=== PATIENT | male | born 1945 | race Caucasian/White ===

== ENCOUNTER 2016-08-08 19:14 | Emergency (ER) | payer MEDICARE, OTHER ==
[2016-08-08] MEDS ORDERED: cloNIDine 0.1 MG Tab PO ONE ×2 (20:33→22:00)
[2016-08-08 20:45] LABS: CHLORIDE,CL 101 mmol/L (98-115); SODIUM,NA 138 mmol/L (136-145)
[2016-08-08] MEDS ORDERED: Acetaminophen/HYDROcodone 325-10 MG Tab PO ONE (20:53)
[2016-08-08] MEDS ORDERED: Acetaminophen/HYDROcodone 325-10 MG Tab ONE (20:54)
[2016-08-08] MEDS ORDERED: cloNIDine 0.1 MG Tab ONE (22:01)
--- NOTE | 2016-08-08 22:11 | EDM.PDOC ---
ED HPI GENERAL MEDICAL PROBLEM - General Chief Complaint: General Stated Complaint: HYPERTENSION Time Seen by Provider: 08/08/16 19:53 Source of Information: Reports: Patient History Limitations: Reports: No limitations - History of Present Illness INITIAL COMMENTS - FREE TEXT/NARRATIVE: Patient presents with high blood pressure. At home his pressure was 170/117. It was high last night and this morning also but responded to his Lisinopril 40 mg qam dose for a few hours then afia again. He also takes Diltiazem 240 mg qhs. He has a headache which usually occurs when his pressures get too high. No fainting or vision changes. Pt denies chest pain or pressure, arm pain, neck /jaw pain, shoulder pain, diaphoresis, nausea. He has A Fib. - Related Data Allergies Allergy/AdvReac Type Severity Reaction Status Date / Time No Known Allergies Allergy Verified 08/08/16 19:33 Home Meds: Home Meds Budesonide/Formoterol [Symbicort 160-4.5 MCG] 2 puff IH BID 11/01/13 [History] Citalopram Hydrobromide [Celexa] 40 mg PO BEDTIME 11/01/13 [History] Dabigatran [Pradaxa] 150 mg PO BID 11/01/13 [History] Digoxin 0.25 mg PO DAILY 11/01/13 [History] Diltiazem [Cardizem CD] 240 mg PO BEDTIME 11/01/13 [History] Lisinopril [Zestril] 40 mg PO DAILY 11/01/13 [History] Rosuvastatin [Crestor] 40 mg PO BEDTIME 11/01/13 [History] clonazePAM [Klonopin] 1.5 mg PO BEDTIME 11/01/13 [History] Aspirin [Adult Low Dose Aspirin EC] 81 mg PO DAILY 10/13/15 [History] Pantoprazole Sodium 40 mg PO DAILY 10/13/15 [History] Fluticasone/Vilanterol [Breo Ellipta 200-25 Mcg INH] 1 inh INH DAILY 07/06/16 [ History] Past Medical History HEENT History: Reports: Impaired vision Cardiovascular History: Reports: Afib, High cholesterol, Hypertension Respiratory History: Reports: Asthma, COPD, Sleep apnea Gastrointestinal History: Reports: Colon polyp, GERD, Hemorrhoids Genitourinary History: Reports: Prostate disorder, Renal calculus Musculoskeletal History: Reports: Arthritis, Back pain, chronic Neurological History: Reports: Migraines Psychiatric History: Reports: Depression Oncologic (Cancer) History: Reports: Prostate - Infectious Disease History Infectious Disease History: Reports: Chicken pox, Measles, Mumps - Past Surgical History HEENT Surgical History: Reports: None Cardiovascular Surgical History: Reports: None Respiratory Surgical History: Reports: None GI Surgical History: Reports: Colonoscopy, EGD, Polypectomy Male Surgical History: Reports: Prostate Biopsy, Other (see below) Other Male Surgeries/Procedures: external radiation to prostate, hx of prostate ca in 2014 Musculoskeletal Surgical History: Reports: Shoulder surgery Social & Family History - Family History Family Medical History: Noncontributory - Tobacco Use Smoking Status *Q: Former Smoker Years of Tobacco use: 1 Packs/Tins Daily: 1 Used Tobacco, but Quit: Yes Month Tobacco Last Used: September Second Hand Smoke Exposure: Yes - Alcohol Use Days Per Week of Alcohol Use: 0 - Recreational Drug Use Recreational Drug Use: No ED ROS GENERAL - Review of Systems Review Of Systems: See Below Constitutional: Denies: fever, chills, diaphoresis HEENT: Denies: Throat pain, Vision change Respiratory: Denies: Shortness of Breath (except for his chronic COPD), Wheezing , Cough Cardiovascular: Denies: Chest pain, Syncope GI/Abdominal: Denies: Abdominal pain, Nausea, Vomiting Musculoskeletal: Denies: neck pain, shoulder pain, arm pain Skin: Denies: cyanosis, jaundice, mottled, pallor, diaphoresis Neurological: Reports: Headache. Denies: Confusion, Dizziness Psychiatric: Denies: Agitation, Anxiety, Confusion ED EXAM, GENERAL - Physical Exam Exam: See Below Exam Limited By: No limitations General Appearance: alert, WD/WN, no apparent distress Eye Exam: bilateral eye: EOMI, normal inspection, PERRL Ears: normal external exam, hearing grossly normal Throat/Mouth: Normal lips, Normal voice, No airway compromise Head: atraumatic, normocephalic Neck: full range of motion Respiratory/Chest: no respiratory distress, lungs clear, normal breath sounds Cardiovascular: normal peripheral pulses, no gallop, no murmur, irregularly irregular, other (2+ edema bilat ankles) GI/Abdominal: normal bowel sounds, soft, non tender Back Exam: No: CVA tenderness (L), CVA tenderness (R) Neurological: alert, oriented, normal cognition, no motor/sensory deficits Psychiatric: normal affect, normal mood Skin Exam: Warm, Dry, Intact, Normal color, No rash Course - Vital Signs Last Recorded V/S: Last Vital Signs Temp 96.8 F 08/08/16 19:20 Pulse 62 08/08/16 21:48 Resp 22 H 08/08/16 20:17 BP 160/81 H 08/08/16 22:04 Pulse Ox 97 08/08/16 21:48 - Orders/Labs/Meds Orders: Active Orders 24 hr Category Date Time Status EKG Documentation Completion [RC] ASDIRECTED Care 08/08/16 20:05 Ordered EKG 12 Lead [EK] Routine Ther 08/08/16 20:00 Ordered Labs: Laboratory Tests 08/08/16 08/08/16 Range/Units 20:05 20:05 WBC 5.4 (5.0-10.0) 10^3/uL RBC 4.92 (4.50-6.00) 10^6/uL Hgb 15.2 (13.0-17.0) g/dL Hct 44.7 (40.0-52.0) % MCV 90.8 (82.0-92.0) fL MCH 30.8 (27.0-31.0) pg MCHC 33.9 (32.0-36.0) g/dL RDW 12.8 (11.5-14.5) % Plt Count 220 (150-300) 10^3/uL MPV 6.8 L (7.4-10.4) fL Neut % (Auto) 68.0 (50.0-70.0) % Lymph % (Auto) 17.8 L (20.0-40.0) % [place] % (Auto) 10.1 H (2.0-8.0) % Eos % (Auto) 3.6 H (1.0-3.0) % Baso % (Auto) 0.5 (0.0-1.0) % Neut # (Auto) 3.7 (2.5-7.0) 10^3/uL Lymph # (Auto) 1.0 (1.0-4.0) 10^3/uL [place] # (Auto) 0.5 (0.1-0.8) 10^3/uL Eos # (Auto) 0.2 (0.1-0.3) 10^3/uL Baso # (Auto) 0.0 (0.0-0.1) 10^3/uL Sodium 138 (136-145) mmol/L Potassium 4.3 (3.3-5.3) mmol/L Chloride 101 (98-115) mmol/L Carbon Dioxide 32.1 H (21.0-32.0) mmol/L BUN 14 (6-25) mg/dL Creatinine 0.93 (0.51-1.17) mg/dL Est Cr Clr Drug Dosing TNP Estimated GFR (MDRD) > 60 mL/min Glucose 94 (70-110) mg/dL Calcium 8.9 (8.7-10.3) mg/dL Troponin I < 0.04 (0.00-0.070) ng/mL Meds: Medications Discontinued Medications Generic Name Dose Route Start Last Admin Trade Name Freq PRN Reason Stop Dose Admin Hydrocodone Bitart/Acetaminophen 1 tab 08/08/16 20:53 08/08/16 20:56 [place] 325-10 Mg PO 08/08/16 20:54 1 tab ONETIME ONE Administration Hydrocodone Bitart/Acetaminophen Confirm 08/08/16 20:54 [place] 325-10 Mg Administered 08/08/16 20:55 Dose 1 tab .ROUTE .STK-MED ONE Clonidine HCl 0.1 mg 08/08/16 20:33 08/08/16 20:37 [place] PO 08/08/16 20:34 0.1 mg ONETIME ONE Administration Clonidine HCl 0.1 mg 08/08/16 22:00 08/08/16 22:04 [place] PO 08/08/16 22:01 0.1 mg ONETIME ONE Administration Clonidine HCl Confirm 08/08/16 22:01 [place] Administered 08/08/16 22:02 Dose 0.1 mg .ROUTE .STK-MED ONE - Re-Assessments/Exams Free Text/Narrative Re-Assessment/Exam: 08/08/16 22:16 Patient had headache that escalated for awhile then started coming back down and is now gone. We've given Clonidine 0.1 mg x 2 and hydrocodone for the headache. The blood pressure has responded fairly well. He hasn't taken his Diltiazem evening dose yet. 08/08/16 22:53 Headache is gone, blood pressure is down. Patient feels much better and ready to go home. I advised follow up with his PCP for evaluation of his blood pressure meds. Pt discharged in stable condition. BP at discharge is 148/85. Departure - Departure Time of Disposition: 22:54 Disposition: Home, Self-Care 01 Condition: good Clinical Impression: Hypertensive urgency Headache Qualifiers: Headache type: unspecified Headache chronicity pattern: unspecified pattern Intractability: not intractable Qualified Code(s): R51 - Headache Forms: ED Department Discharge Additional Instructions: 1. Take your blood pressure medications as directed. 2. Follow up with your PCP next week for evaluation of your blood pressure control. 3. Return to ER if needed. - My Orders Last 24 Hours: My Active Orders 08/08/16 20:00 EKG 12 Lead [EK] Routine 08/08/16 20:05 EKG Documentation Completion [RC] ASDIRECTED - Assessment/Plan Last 24 Hours: My Active Orders 08/08/16 20:00 EKG 12 Lead [EK] Routine 08/08/16 20:05 EKG Documentation Completion [RC] ASDIRECTED
[2016-08-09 03:05] VITALS: BP 148/85
== END 2016-08-08 23:02 | disposition home or self-care (01) ==
LOC: KA.ED 19:14
DX: I16.0 Hypertensive urgency (principal); R51 Headache; I48.91 Unspecified atrial fibrillation; E78.00 Pure hypercholesterolemia, unspecified; Z87.891 Personal history of nicotine dependence; Z79.899 Other long term (current) drug therapy; J44.9 Chronic obstructive pulmonary disease, unspecified; J45.909 Unspecified asthma, uncomplicated; K21.9 Gastro-esophageal reflux disease without esophagitis; M19.90 Unspecified osteoarthritis, unspecified site; F32.9 Major depressive disorder, single episode, unspecified; C61 Malignant neoplasm of prostate
CPT/HCPCS: 36415; 80048; 84484; 85025; 93005; 99283; A9270

== ENCOUNTER 2017-02-01 15:50 | Emergency (ER) | payer MEDICARE, OTHER ==
[2017-02-01] MEDS ORDERED: Diltiazem IR 60 MG Tab PO ONE (16:02)
--- NOTE | 2017-02-01 16:09 | EDM.PDOC ---
ED HPI GENERAL MEDICAL PROBLEM - General Chief Complaint: Cardiovascular Problem Stated Complaint: HIGH BLOOD PRESSURE Time Seen by Provider: 02/01/17 16:01 Source of Information: Reports: Patient History Limitations: Reports: No Limitations - History of Present Illness INITIAL COMMENTS - FREE TEXT/NARRATIVE: PT STATES HE TOOK BP TODAY AND IT WAS 160/100 ON SEVERAL OCCASIONS. NOW HAS BURNETT AND CONCERNED ABOUT BP. TOOK LISINOPRIL THIS AM SCHEDULED. DENIES CP, SOB, FACIAL NUMBNESS, SPEECH DIFFICULTY, FEVER, N/V, VISION CHANGES Onset: Today, Gradual Duration: Hour(s): Location: Reports: Other (NO CP) Severity: Mild Improves with: Reports: None Worsens with: Reports: None Associated Symptoms: Reports: No Other Symptoms - Related Data Allergies Allergy/AdvReac Type Severity Reaction Status Date / Time No Known Allergies Allergy Verified 02/01/17 15:58 Home Meds: Home Meds Citalopram Hydrobromide [Celexa] 40 mg PO BEDTIME 11/01/13 [History] Dabigatran [Pradaxa] 150 mg PO BID 11/01/13 [History] Digoxin 0.25 mg PO DAILY 11/01/13 [History] Diltiazem [Cardizem CD] 240 mg PO BEDTIME 11/01/13 [History] Lisinopril [Zestril] 40 mg PO DAILY 11/01/13 [History] Rosuvastatin [Crestor] 40 mg PO BEDTIME 11/01/13 [History] clonazePAM [Klonopin] 1.5 mg PO BEDTIME 11/01/13 [History] Aspirin [Adult Low Dose Aspirin EC] 81 mg PO DAILY 10/13/15 [History] Pantoprazole Sodium 40 mg PO DAILY 10/13/15 [History] Past Medical History HEENT History: Reports: Impaired Vision Cardiovascular History: Reports: Afib, High Cholesterol, Hypertension Respiratory History: Reports: Asthma, COPD, Sleep Apnea Gastrointestinal History: Reports: Colon Polyp, GERD, Hemorrhoids Genitourinary History: Reports: Prostate Disorder, Renal Calculus Musculoskeletal History: Reports: Arthritis, Back Pain, Chronic Neurological History: Reports: Migraines Psychiatric History: Reports: Depression Oncologic (Cancer) History: Reports: Prostate - Infectious Disease History Infectious Disease History: Reports: Chicken Pox, Measles, Mumps - Past Surgical History Male Surgical History: Reports: Prostate Biopsy, Other (See Below) Musculoskeletal Surgical History: Reports: Shoulder Surgery Social & Family History - Family History Family Medical History: Noncontributory - Tobacco Use Smoking Status *Q: Former Smoker Years of Tobacco use: 1 Packs/Tins Daily: 1 Used Tobacco, but Quit: Yes Month Tobacco Last Used: September Second Hand Smoke Exposure: Yes - Caffeine Use Caffeine Use: Reports: Coffee - Alcohol Use Days Per Week of Alcohol Use: 0 - Recreational Drug Use Recreational Drug Use: No ED ROS GENERAL - Review of Systems Review Of Systems: ROS reveals no pertinent complaints other than HPI. Constitutional: Reports: No Symptoms HEENT: Reports: No Symptoms Respiratory: Reports: No Symptoms Cardiovascular: Reports: No Symptoms Endocrine: Reports: No Symptoms GI/Abdominal: Reports: No Symptoms : Reports: No Symptoms Musculoskeletal: Reports: No Symptoms Skin: Reports: No Symptoms Neurological: Reports: Headache Psychiatric: Reports: No Symptoms Hematologic/Lymphatic: Reports: No Symptoms Immunologic: Reports: No Symptoms ED EXAM, GENERAL - Physical Exam Exam: See Below Exam Limited By: No Limitations General Appearance: Alert, WD/WN, No Apparent Distress Eye Exam: Bilateral Eye: Normal Inspection Ears: Normal External Exam, Normal Canal, Normal TMs Nose: Normal Inspection, Normal Mucosa, No Blood Throat/Mouth: Normal Inspection, Normal Oropharynx, No Airway Compromise Head: Atraumatic, Normocephalic Neck: Normal Inspection, Supple, Non-Tender Respiratory/Chest: No Respiratory Distress, Lungs Clear, Normal Breath Sounds, No Accessory Muscle Use, Chest Non-Tender Cardiovascular: Regular Rate, Rhythm, No Murmur GI/Abdominal: Normal Bowel Sounds, Soft, Non-Tender, No Abnormal Bruit, No Mass Back Exam: Normal Inspection. No: CVA Tenderness (L), CVA Tenderness (R) Extremities: Normal Inspection, No Pedal Edema Neurological: Alert, Oriented, CN II-XII Intact, Normal Cognition, No Motor/ Sensory Deficits Psychiatric: Normal Affect, Normal Mood Skin Exam: Warm, Dry, Intact, Normal Color, No Rash Lymphatic: No Adenopathy EKG INTERPRETATION EKG Date: 02/01/17 Time: 17:00 Rhythm: A-Fib [place]: LAD-Left [place] Deviation Comparison: No Change Course - Vital Signs Last Recorded V/S: Last Vital Signs Temp 96.3 F 02/01/17 15:56 Pulse 85 02/01/17 15:56 Resp 20 02/01/17 15:56 BP 160/88 H 02/01/17 15:56 Pulse Ox 98 02/01/17 15:56 - Orders/Labs/Meds Orders: Active Orders 24 hr Category Date Time Status Diltiazem [Cardizem] Med 02/01/17 16:02 Once 240 mg PO ONETIME ONE - Re-Assessments/Exams Free Text/Narrative Re-Assessment/Exam: 02/01/17 16:[address] EASLEY. WILL OBTAIN EKG AND LAB WORK TO EVALUATE HTN CONDITION Free Text/Narrative Re-Assessment/Exam: 02/01/17 18:01 PT AFEBRILE, NONTOXIC APPEARING, 160/92, HR 79, BURNETT IMPROVED, RESTING COMFORTABLE , DENIES CP, SOB, BLURRY VISION OR DIZZINESS Departure - Departure Time of Disposition: 18:02 Disposition: Home, Self-Care 01 Condition: Good Clinical Impression: Hypertensive urgency Hypertensive heart disease Qualifiers: Heart failure presence: without heart failure Qualified Code(s): I11.9 - Hypertensive heart disease without heart failure Headache Qualifiers: Headache type: unspecified Headache chronicity pattern: unspecified pattern Intractability: not intractable Qualified Code(s): R51 - Headache Atrial fibrillation Qualifiers: Atrial fibrillation type: chronic Qualified Code(s): I48.2 - Chronic atrial fibrillation Instructions: Atrial Fibrillation, [id number], Hypertension, [id number] Referrals: Adela Temple MD [Primary Care Provider] - Additional Instructions: FOLLOW UP WITH DR EASLEY ON THURSDAY. CALL FOR APPOINTMENT TIME. RETURN TO ER SOONER IF SYMPTOMS CONTINUE - My Orders Last 24 Hours: My Active Orders 02/01/17 16:02 Diltiazem [Cardizem] 240 mg PO ONETIME ONE - Assessment/Plan Last 24 Hours: My Active Orders 02/01/17 16:02 Diltiazem [Cardizem] 240 mg PO ONETIME ONE Assessment:: htn Plan: F/U AT CLINIC ON THURSDAY
[2017-02-01] MEDS ORDERED: hydrALAZINE 20 MG/ML SDV IVPUSH ONE (16:46)
[2017-02-01] MEDS: Sodium Chloride 0.9% 5 ML Syringe FLUSH PRN ×2 (17:10→17:13)
[2017-02-01 17:56] LABS: CHLORIDE,CL 103 mmol/L (98-115); SODIUM,NA 138 mmol/L (136-145)
[2017-02-01 18:04] VITALS: BP 170/92
== END 2017-02-01 18:15 | disposition home or self-care (01) ==
LOC: KA.ED 15:50
DX: I16.0 Hypertensive urgency (principal); I11.9 Hypertensive heart disease without heart failure; F32.9 Major depressive disorder, single episode, unspecified; E78.00 Pure hypercholesterolemia, unspecified; J45.909 Unspecified asthma, uncomplicated; K21.9 Gastro-esophageal reflux disease without esophagitis; M19.90 Unspecified osteoarthritis, unspecified site; G43.909 Migraine, unspecified, not intractable, without status migrainosus; Z79.82 Long term (current) use of aspirin; Z87.891 Personal history of nicotine dependence; Z79.899 Other long term (current) drug therapy
CPT/HCPCS: 36415; 80053; 84484; 85025; 96374; 99283; A9270; J0360; 93005

== ENCOUNTER 2017-09-20 22:43 | Emergency (ER) | payer MEDICARE, OTHER ==
[2017-09-20 22:54] VITALS: BP 138/93
[2017-09-20] MEDS ORDERED: cefTRIAXone 1 GM Vial IM ONE (23:03)
--- NOTE | 2017-09-20 23:09 | EDM.PDOC ---
ED HPI GENERAL MEDICAL PROBLEM - General Chief Complaint: Upper Extremity Injury/Pain Stated Complaint: LEFT HAND SWELLING Time Seen by Provider: 09/20/17 23:03 Source of Information: Reports: Patient History Limitations: Reports: No Limitations - History of Present Illness INITIAL COMMENTS - FREE TEXT/NARRATIVE: Patient is a 71-year-old gentleman who presents to the emergency department this evening with a complaint of left hand swelling secondary to insect bite on Thursday. Patient states that the hand has gradually become swollen and red and he thinks he was bitten by a spider. Patient denies fever, shortness of breath , chest pain, nausea, vomiting, or insect bites anywhere else on his body. Onset: Gradual Onset Date: 09/18/17 Duration: Day(s): Location: Reports: Upper Extremity, Left Severity: Mild Improves with: Reports: None Worsens with: Reports: None Context: Reports: Other (Insect bite) Associated Symptoms: Reports: No Other Symptoms Left Hand Pain Score (Numeric/FACES): 2 - Related Data Allergies Allergy/AdvReac Type Severity Reaction Status Date / Time No Known Allergies Allergy Verified 09/20/17 22:49 Home Meds: Home Meds Citalopram Hydrobromide [Celexa] 40 mg PO BEDTIME 11/01/13 [History] Dabigatran [Pradaxa] 150 mg PO BID 11/01/13 [History] Digoxin 0.25 mg PO DAILY 11/01/13 [History] Diltiazem [Cardizem CD] 240 mg PO BEDTIME 11/01/13 [History] Lisinopril [Zestril] 40 mg PO DAILY 11/01/13 [History] Rosuvastatin [Crestor] 40 mg PO BEDTIME 11/01/13 [History] clonazePAM [Klonopin] 1.5 mg PO BEDTIME 11/01/13 [History] Aspirin [Adult Low Dose Aspirin EC] 81 mg PO DAILY 10/13/15 [History] Pantoprazole Sodium 40 mg PO DAILY 10/13/15 [History] Sulfamethoxazole/Trimethoprim [Bactrim Ds Tablet] 1 each PO BID #14 tablet 09/20 [Rx] Past Medical History HEENT History: Reports: Impaired Vision Cardiovascular History: Reports: Afib, High Cholesterol, Hypertension Respiratory History: Reports: Asthma, COPD, Sleep Apnea Gastrointestinal History: Reports: Colon Polyp, GERD, Hemorrhoids Genitourinary History: Reports: Prostate Disorder, Renal Calculus Musculoskeletal History: Reports: Arthritis, Back Pain, Chronic Neurological History: Reports: Migraines Psychiatric History: Reports: Depression Endocrine/Metabolic History: Reports: Obesity/BMI 30+ Immunologic History: Reports: Immunosuppression Oncologic (Cancer) History: Reports: Prostate - Infectious Disease History Infectious Disease History: Reports: Chicken Pox, Measles, Mumps - Past Surgical History Male Surgical History: Reports: Prostate Biopsy, Other (See Below) Musculoskeletal Surgical History: Reports: Shoulder Surgery Social & Family History - Family History Family Medical History: Noncontributory - Tobacco Use Smoking Status *Q: Former Smoker Years of Tobacco use: 1 Packs/Tins Daily: 1 Used Tobacco, but Quit: Yes Month/Year Tobacco Last Used: September Second Hand Smoke Exposure: Yes - Caffeine Use Caffeine Use: Reports: Coffee Other Caffeine Use: boost - Alcohol Use Days Per Week of Alcohol Use: 0 - Recreational Drug Use Recreational Drug Use: No Review of Systems - Review of Systems Review Of Systems: ROS reveals no pertinent complaints other than HPI. Constitutional: Reports: No Symptoms Eyes: Reports: No Symptoms Ears: Reports: No Symptoms Nose: Reports: No Symptoms Mouth/Throat: Reports: No Symptoms Respiratory: Reports: No Symptoms Cardiovascular: Reports: No Symptoms GI/Abdominal: Reports: No Symptoms Genitourinary: Reports: No Symptoms Musculoskeletal: Reports: No Symptoms Skin: Reports: Erythema Neurological: Reports: No Symptoms Psychiatric: Reports: No Symptoms ED EXAM, GENERAL - Physical Exam Exam: See Below Exam Limited By: No Limitations General Appearance: Alert, WD/WN, No Apparent Distress Throat/Mouth: Normal Inspection, Normal Oropharynx, No Airway Compromise Respiratory/Chest: No Respiratory Distress Extremities: Redness (Left hand dorsal aspect erythema, edema, abscess formation , and single punctum.) Neurological: Alert, Oriented, Normal Cognition Psychiatric: Normal Affect, Normal Mood Skin Exam: Warm, Dry, Intact, Normal Color, No Rash, Erythema Lymphatic: Other (No axilla adenopathy) ED TRAUMA EXTREMITY PROCEDURES - I&D Site: Left hand dorsal aspect Skin Prep: Providone-Iodine (Betadine) Local Anesthesia: Lidocaine: Other (No local) Area Incised With: 15 Blade Drainage: Purulent, Small Amount Probed to Break Up Loculations: Yes Complications: No Course - Vital Signs Last Recorded V/S: Last Vital Signs Temp 98.5 F 09/20/17 22:49 Pulse 95 09/20/17 22:49 Resp 18 09/20/17 22:49 BP 138/93 H 09/20/17 22:49 Pulse Ox 99 09/20/17 22:49 - Orders/Labs/Meds Orders: Active Orders 24 hr Category Date Time Status cefTRIAXone [Rocephin] Med 09/20/17 23:03 Once 1 gm IM ONETIME ONE - Re-Assessments/Exams Free Text/Narrative Re-Assessment/Exam: 09/20/17 23:09 Patient afebrile, nontoxic appearing, vital signs stable, tolerated procedure well. Patient will follow-up with Dr. Monroe in 2 days for recheck. Departure - Departure Time of Disposition: 23:09 Disposition: Home, Self-Care 01 Condition: Good Clinical Impression: Cellulitis and abscess of hand - Discharge Information Instructions: Skin Abscess, [id number], Cellulitis, Adult, [id number] Referrals: Adela Temple MD [Physician] - Additional Instructions: Follow-up with Dr. Monroe in 2 days. Return to the emergency department sooner if symptoms continue or worsen. - My Orders Last 24 Hours: My Active Orders 09/20/17 23:03 cefTRIAXone [Rocephin] 1 gm IM ONETIME ONE - Assessment/Plan Last 24 Hours: My Active Orders 09/20/17 23:03 cefTRIAXone [Rocephin] 1 gm IM ONETIME ONE Assessment:: Left hand cellulitis, abscess Plan: Follow-up with Dr. Monroe 2 days
[2017-09-20] MEDS ORDERED: Lidocaine 1% 20 ML MDV ONE (23:10)
== END 2017-09-20 23:20 | disposition home or self-care (01) ==
LOC: KA.ED 22:43
DX: L02.512 Cutaneous abscess of left hand (principal); L03.114 Cellulitis of left upper limb; I48.91 Unspecified atrial fibrillation; E78.00 Pure hypercholesterolemia, unspecified; I10 Essential (primary) hypertension; J44.9 Chronic obstructive pulmonary disease, unspecified; E66.9 Obesity, unspecified; Z79.899 Other long term (current) drug therapy; Z79.82 Long term (current) use of aspirin; Z87.891 Personal history of nicotine dependence; Z68.27 Body mass index [BMI] 27.0-27.9, adult
CPT/HCPCS: 10060; 96372; 99282; 99283; J0696

== ENCOUNTER 2018-12-22 19:29 | Emergency (ER) | payer MEDICARE, OTHER ==
[2018-12-22 19:47] VITALS: BP 134/98; PULSE 92
[2018-12-22] MEDS ORDERED: Sodium Chloride 0.9% 10 ML Syringe FLUSH PRN (19:49)
--- NOTE | 2018-12-22 19:49 | EDM.PDOC ---
ED HPI GENERAL MEDICAL PROBLEM - General Chief Complaint: Lower Extremity Injury/Pain Stated Complaint: Blisters to leg Time Seen by Provider: 12/22/18 19:35 Source of Information: Reports: Patient History Limitations: Reports: No Limitations - History of Present Illness INITIAL COMMENTS - FREE TEXT/NARRATIVE: 73 YO WM presents to ER complaining of lower extremity swelling with redness and blisters which began over the last 3 days. Pt reports history of Atrial Fibrillation and peripheral edema which he has been prescribed Lasix and he's noncompliant with medication due to frequent urination. Pt reports the blisters occurred over the last couple of days prompting ER evaluation. Pt denies chest pain, diaphoresis, nausea/vomiting or fever/chills. Pt reports mild shortness of breath but denies dyspnea on exertion or orthopnea. Onset Date: 12/20/18 Duration: Day(s): (3) Location: Reports: Lower Extremity, Left, Lower Extremity, Right Quality: Reports: Ache Severity: Mild Improves with: Reports: None Worsens with: Reports: None Associated Symptoms: Reports: Shortness of Breath. Denies: Chest Pain, Cough, cough w sputum, Diaphoresis, Fever/Chills, Nausea/Vomiting, Syncope, Weakness - Related Data Allergies Allergy/AdvReac Type Severity Reaction Status Date / Time No Known Allergies Allergy Verified 12/22/18 19:47 Home Meds: Home Meds Citalopram Hydrobromide [Celexa] 40 mg PO BEDTIME 11/01/13 [History] Dabigatran [Pradaxa] 150 mg PO BID 11/01/13 [History] Diltiazem [Cardizem CD] 120 mg PO BEDTIME 11/01/13 [History] Rosuvastatin [Crestor] 40 mg PO BEDTIME 11/01/13 [History] Aspirin [Adult Low Dose Aspirin EC] 81 mg PO DAILY 10/13/15 [History] Pantoprazole Sodium 40 mg PO DAILY 10/13/15 [History] Acetaminophen [Tylenol] 325 mg PO ASDIRECTED 04/23/18 [History] Albuterol Sulfate [Proair Hfa] 2 puff IH Q6H 04/23/18 [History] Allopurinol [Zyloprim] 100 mg PO DAILY 04/23/18 [History] Bacitracin Zinc [Antibiotic] 1 applic TOP BID 04/23/18 [History] Bisacodyl [Biscolax] 10 mg RC DAILY PRN 04/23/18 [History] Budesonide/Formoterol Fumarate [Symbicort 160-4.5 Mcg Inhaler] 2 puff PO BID 12/02 [History] Bumetanide 2 mg PO BID 04/23/18 [History] Cholecalciferol (Vitamin D3) [Vitamin D3] 1,000 unit PO DAILY 04/23/18 [History] Cyanocobalamin (Vitamin B-12) [B-12] 1,000 mcg PO DAILY 04/23/18 [History] Cyclobenzaprine [Flexeril] 5 - 10 mg PO TID PRN 04/23/18 [History] Diclofenac Sodium [Voltaren] 75 mg PO BIDMEALS 04/23/18 [History] Digoxin 250 mcg PO DAILY 04/23/18 [History] Hydrocortisone Acetate 25 mg RC BEDTIME PRN 04/23/18 [History] Lisinopril 20 mg PO DAILY 04/23/18 [History] MO/Pet,Wh/Phenylephrine/Shk Lv [Preparation H Oint] 1 applic RECTAL ASDIRECTED 04/23/18 [History] Oxybutynin Chloride [Ditropan Xl] 10 mg PO DAILY 04/23/18 [History] Polyethylene Glycol 3350 [MiraLAX] 17 gm PO DAILY PRN 04/23/18 [History] Sennosides [Senna] 8.6 mg PO ASDIRECTED 04/23/18 [History] Sodium Chloride 1,000 mg PO BID 04/23/18 [History] Tiotropium [Spiriva HandiHaler] 1 inh INH DAILY 04/23/18 [History] buPROPion [buPROPion XL] 150 mg PO BEDTIME 04/23/18 [History] hydrOXYzine HCl [hydrOXYzine] 25 mg PO BEDTIME 04/23/18 [History] oxyCODONE 5 mg PO Q4H PRN 04/23/18 [History] Sulfamethoxazole/Trimethoprim [Septra DS] 1 each PO BID #20 tab 12/22/18 [Rx] Past Medical History HEENT History: Reports: Impaired Vision Cardiovascular History: Reports: Afib, High Cholesterol, Hypertension Respiratory History: Reports: Asthma, COPD, Sleep Apnea Gastrointestinal History: Reports: Colon Polyp, GERD, Hemorrhoids Genitourinary History: Reports: Prostate Disorder, Renal Calculus Musculoskeletal History: Reports: Arthritis, Back Pain, Chronic Neurological History: Reports: Migraines Psychiatric History: Reports: Depression Endocrine/Metabolic History: Reports: Obesity/BMI 30+ Immunologic History: Reports: Immunosuppression Oncologic (Cancer) History: Reports: Prostate Dermatologic History: Reports: Cellulitis - Infectious Disease History Infectious Disease History: Reports: Chicken Pox, Measles, MRSA, Mumps - Past Surgical History HEENT Surgical History: Reports: None Cardiovascular Surgical History: Reports: None Respiratory Surgical History: Reports: None GI Surgical History: Reports: Cholecystectomy, Colonoscopy, Hernia, Inguinal, Polypectomy Male Surgical History: Reports: Prostate Biopsy, Other (See Below) Other Male Surgeries/Procedures: prostate cancer with radiation Endocrine Surgical History: Reports: None Neurological Surgical History: Reports: None Musculoskeletal Surgical History: Reports: Shoulder Surgery Dermatological Surgical History: Reports: None Social & Family History - Family History Family Medical History: Noncontributory - Caffeine Use Caffeine Use: Reports: Coffee Other Caffeine Use: boost Review of Systems - Review of Systems Review Of Systems: See Below Constitutional: Reports: No Symptoms Eyes: Reports: No Symptoms Ears: Reports: No Symptoms Nose: Reports: No Symptoms Mouth/Throat: Reports: No Symptoms Respiratory: Reports: Shortness of Breath Cardiovascular: Reports: Edema, Irregular Heart Rate GI/Abdominal: Reports: No Symptoms Genitourinary: Reports: No Symptoms Musculoskeletal: Reports: No Symptoms Skin: Reports: Erythema, Other (multiple broken blisters) Neurological: Reports: No Symptoms Psychiatric: Reports: No Symptoms ED EXAM, GENERAL - Physical Exam Exam: See Below Exam Limited By: No Limitations General Appearance: Alert, WD/WN, No Apparent Distress Head: Atraumatic, Normocephalic Neck: Normal Inspection, Supple, Non-Tender, Full Range of Motion Respiratory/Chest: No Respiratory Distress, Lungs Clear, Normal Breath Sounds, No Accessory Muscle Use, Chest Non-Tender Cardiovascular: Normal Peripheral Pulses, No Gallop, No Rub, Irregularly Irregular. No: Regular Rate, Rhythm, No Edema GI/Abdominal: Normal Bowel Sounds, Soft, Non-Tender, No Organomegaly, No Distention, No Abnormal Bruit, No Mass Back Exam: Normal Inspection, Full Range of Motion, NT Extremities: Normal Range of Motion, Normal Capillary Refill, Pedal Edema, Increased Warmth Neurological: Alert, Oriented, CN II-XII Intact, Normal Cognition, Normal Gait, Normal Reflexes, No Motor/Sensory Deficits Psychiatric: Normal Affect, Normal Mood Skin Exam: Erythema, Increased Warmth, Other (multiple broken blisters) EKG INTERPRETATION EKG Date: 12/22/18 Time: 20:19 Rhythm: A-Fib Rate (Beats/Min): 97 P-Wave: Absent QRS: RBBB ST-T: Normal QT: Normal Course - Vital Signs Last Recorded V/S: Last Vital Signs Temp 36.6 C 12/22/18 19:35 Pulse 92 12/22/18 19:35 Resp 20 12/22/18 19:35 BP 134/98 H 12/22/18 19:35 Pulse Ox 96 12/22/18 19:35 - Orders/Labs/Meds Orders: Active Orders 24 hr Category Date Time Status EKG Documentation Completion [RC] ASDIRECTED Care 12/22/18 19:49 Active Peripheral IV Care [RC] . DIRECTED Care 12/22/18 19:49 Active Furosemide [Lasix] Med 12/22/18 21:36 Once 40 mg IVPUSH NOW ONE Sodium Chloride 0.9% [Saline Flush] Med 12/22/18 19:49 Active 10 ml FLUSH Q8HR PRN Peripheral IV Insertion Adult [OM.PC] Routine Oth 12/22/18 19:49 Ordered EKG 12 Lead [EK] Routine Ther 12/22/18 19:49 Ordered Medication Orders Sodium Chloride (Saline Flush) 10 ml FLUSH Q8HR PRN PRN Reason: keep vein open Labs: Laboratory Tests 12/22/18 12/22/18 Range/Units 20:00 20:00 WBC 5.58 (5.00-10.00) 10^3/uL RBC 4.77 (4.50-6.00) 10^6/uL Hgb 15.5 D (13.0-17.0) g/dL Hct 44.5 (40.0-52.0) % MCV 93.3 H (82.0-92.0) fL MCH 32.5 H (27.0-31.0) pg MCHC 34.8 (32.0-36.0) g/dL RDW 12.8 (11.5-14.5) % Plt Count 194 (150-400) 10^3/uL MPV 8.9 (7.4-10.4) fL Immature Gran % (Auto) 0.2 (0.0-5.0) % Neut % (Auto) 62.9 (50.0-70.0) % Lymph % (Auto) 23.3 (20.0-40.0) % [place] % (Auto) 10.2 H (2.0-8.0) % Eos % (Auto) 2.9 (1.0-3.0) % Baso % (Auto) 0.5 (0.0-1.0) % Immature Gran # (Auto) 0.01 (0.00-0.50) 10^3/uL Neut # (Auto) 3.51 (2.50-7.00) 10^3/uL Lymph # (Auto) 1.30 (1.00-4.00) 10^3/uL [place] # (Auto) 0.57 (0.10-0.80) 10^3/uL Eos # (Auto) 0.16 (0.10-0.30) 10^3/uL Baso # (Auto) 0.03 (0.00-0.10) 10^3/uL Sodium 143 (136-145) mmol/L Potassium 4.2 (3.3-5.3) mmol/L Chloride 105 (98-115) mmol/L Carbon Dioxide 29.2 (21.0-32.0) mmol/L Anion Gap 13.0 (5-15) mmol/L BUN 15 (6-25) mg/dL Creatinine 1.04 (0.51-1.17) mg/dL Est Cr Clr Drug Dosing 64.34 mL/min Estimated GFR (MDRD) > 60 mL/min Glucose 96 (75 - 99) mg/dL Calcium 9.0 (8.7-10.3) mg/dL Total Bilirubin 1.6 H (0.2-1.0) mg/dL AST 27 (15-37) U/L ALT 22 (12-78) U/L Alkaline Phosphatase 67 (46-116) IU/L Creatine Kinase 418 H* (26-276) U/L CK-MB (CK-2) 5.30 H* (0.00-4.30) ng/mL Troponin I < 0.04 (0.00-0.070) ng/mL B-Natriuretic Peptide 17 (0-100) pg/mL Total Protein 6.2 L (6.4-8.2) g/dL Albumin 3.29 (3.00-4.80) g/dL Meds: Medications Generic Name Dose Route Start Last Admin Trade Name Freq PRN Reason Stop Dose Admin Sodium Chloride 10 ml 12/22/18 19:49 Saline Flush FLUSH Q8HR PRN keep vein open - Radiology Interpretation Free Text/Narrative:: CXR- NAD Departure - Departure Time of Disposition: 21:38 Disposition: Home, Self-Care 01 Condition: Fair Clinical Impression: Cellulitis of both lower extremities, Peripheral edema - Discharge Information Prescriptions: Sulfamethoxazole/Trimethoprim [Septra DS] 1 each PO BID #20 tab Instructions: Peripheral Edema, Cellulitis, Adult, [id number] Referrals: Adela Temple MD [Physician] - Forms: ED Department Discharge Additional Instructions: 1. discharge home 2. restart lasix in am 3. septra DS #20 1 tablet by mouth twice a day x 10 days 4. follow up with Dr Monroe 12/24/2018 for further evaluation and treatment 5. return to ER for worsening symptoms - My Orders Last 24 Hours: My Active Orders 12/22/18 19:49 EKG Documentation Completion [RC] ASDIRECTED Peripheral IV Care [RC] . DIRECTED Sodium Chloride 0.9% [Saline Flush] 10 ml FLUSH Q8HR PRN Peripheral IV Insertion Adult [OM.PC] Routine EKG 12 Lead [EK] Routine 12/22/18 21:36 Furosemide [Lasix] 40 mg IVPUSH NOW ONE - Assessment/Plan Last 24 Hours: My Active Orders 12/22/18 19:49 EKG Documentation Completion [RC] ASDIRECTED Peripheral IV Care [RC] . DIRECTED Sodium Chloride 0.9% [Saline Flush] 10 ml FLUSH Q8HR PRN Peripheral IV Insertion Adult [OM.PC] Routine EKG 12 Lead [EK] Routine 12/22/18 21:36 Furosemide [Lasix] 40 mg IVPUSH NOW ONE Assessment:: 1. bilateral lower extremity cellulitis with edema Plan: 1. discharge home 2. restart lasix in am 3. septra DS #20 1 tablet by mouth twice a day x 10 days 4. follow up with Dr Monroe 12/24/2018 for further evaluation and treatment 5. return to ER for worsening symptoms
[2018-12-22 20:36] LABS: CHLORIDE,CL 105 mmol/L (98-115); SODIUM,NA 143 mmol/L (136-145)
--- NOTE | 2018-12-22 20:43 | CR ---
[id number] RAD/RAD Chest PA And Lateral EXAM: RAD Chest PA And Lateral INDICATION: PAIN COMPARISON: 2013. DISCUSSION: Cardiomediastinal silhouette is unchanged in size and contour compared to the prior examination. No infiltrate, effusion, pneumothorax, or edema. IMPRESSION: No acute findings in the chest. Jose nEnis MD 12/22/18 2042 Thank you for allowing us to participate in the care of your patient.
[2018-12-22] MEDS ORDERED: Furosemide 40 MG/4 ML VIAL IVPUSH ONE (21:36)
[2018-12-22] MEDS ORDERED: Sulfamethoxazole/Trimethoprim 800-160 MG Tab PO ONE (21:38)
== END 2018-12-22 22:10 | disposition home or self-care (01) ==
LOC: KA.ED 19:29
DX: L03.116 Cellulitis of left lower limb (principal); L03.115 Cellulitis of right lower limb; R60.0 Localized edema; R06.02 Shortness of breath; I48.91 Unspecified atrial fibrillation; E78.00 Pure hypercholesterolemia, unspecified; I10 Essential (primary) hypertension; J44.9 Chronic obstructive pulmonary disease, unspecified; F32.9 Major depressive disorder, single episode, unspecified; K21.9 Gastro-esophageal reflux disease without esophagitis; Z79.899 Other long term (current) drug therapy; Z79.82 Long term (current) use of aspirin; Z87.442 Personal history of urinary calculi
CPT/HCPCS: 36415; 71046; 80053; 82550; 82553; 83880; 84484; 85025; 93005; 96374; 99284; 99285; A9270; J1940

== ENCOUNTER 2019-07-26 11:33 | Day surgery (SDC) | payer MEDICARE, OTHER ==
[2019-07-26] MEDS ORDERED: Sodium Chloride 0.9% 10 ML Syringe FLUSH PRN (12:00)
[2019-07-26] MEDS ORDERED: Lactated Ringers 1,000 ML IV SCH (12:00)
--- NOTE | 2019-07-26 12:58 | PCM.PN ---
- General Info Date of Service: 07/26/19 - Review of Systems Systems Review Comment:: Patient with history of colon polyps here for surveillance colonoscopy. His last colon exam was over 5 years ago. He denies any recent change in bowel pattern. His recent history and physical is reviewed. Past medical history remains unchanged from that exam. He does have a history of atrial fibrillation. He has been off of his blood thinning medication for 5 days. - Patient Data Vitals - Most Recent: Last Vital Signs Temp 97.2 F 07/26/19 12:05 Pulse 75 07/26/19 12:05 Resp 18 07/26/19 12:05 BP 120/68 07/26/19 12:05 Pulse Ox 96 07/26/19 12:05 Weight - Most Recent: 117.934 kg Med Orders - Current: Current Medications Lactated Ringer's (Ringers, Lactated) 1,000 mls @ 50 mls/hr IV ASDIRECTED [facility] Last Admin: 07/26/19 12:17 Dose: 50 mls/hr Sodium Chloride (Saline Flush) 10 ml FLUSH Q8HR PRN PRN Reason: keep vein open - Exam General: Alert, Oriented Lungs: Clear to Auscultation Cardiovascular: Irregular Rhythm GI/Abdominal Exam: Soft Sepsis Event Note - Focused Exam Vital Signs: Vital Signs Temp Pulse Resp BP Pulse Ox 07/26/19 12:05 97.2 F 75 18 120/68 96 Date Exam was Performed: 07/26/19 Time Exam was Performed: 12:54 - Problem List Review Problem List Initiated/Reviewed/Updated: Yes - My Orders Last 24 Hours: My Active Orders 07/25/19 14:53 Resuscitation Status Routine 07/26/19 12:00 Peripheral IV Care [RC] . DIRECTED Lactated Ringers [Ringers, Lactated] 1,000 ml IV ASDIRECTED Sodium Chloride 0.9% [Saline Flush] 10 ml FLUSH Q8HR PRN Peripheral IV Insertion Adult [OM.PC] Routine 07/26/19 13:00 Patient to Empty Bladder [RC] ASDIRECTED 07/26/19 13:30 Verify Patient Consent Obtain [RC] ASDIRECTED 07/26/19 Breakfast Nothing Per Oral Diet [DIET] - Assessment Assessment:: History of colon polyps History of atrial fibrillation History of asthma - Plan Plan:: Colonoscopy. I have discussed the proposed colonoscopy with the patient. Risks such as but not limited to bleeding and GI injury reviewed. He agrees to proceed.
[2019-07-26] MEDS ORDERED: Midazolam 1 MG/ML 2 ML SDV ONE (13:10)
[2019-07-26] MEDS ORDERED: Propofol 200 MG/20 ML SDV ONE (13:10)
[2019-07-26] MEDS ORDERED: Propofol 200 MG/20 ML SDV IV ONE (14:07)
[2019-07-26] MEDS ORDERED: Midazolam 1 MG/ML 2 ML SDV IV ONE (14:07)
--- NOTE | 2019-07-26 14:48 | PCM.OPNOTE ---
- General Post-Op/Procedure Note Date of Surgery/Procedure: 07/26/19 Operative Procedure(s): Colonoscopy with polypectomy Findings: Small polyps in the ascending colon and hepatic flexure Pre Op Diagnosis: History of colon polyps Post-Op Diagnosis: Colon Polyps Anesthesia Technique: MAC Primary Surgeon: Hal Mcneil Pathology: Colon polyps EBL in mLs: 1 Complications: None Condition: Good
[2019-07-26 16:49] VITALS: BP 126/81; PULSE 87
--- NOTE | 2019-07-26 20:48 | OR ---
DATE OF SURGERY: 07/26/2019 SURGEON: Hal Mcneil MD PREOPERATIVE DIAGNOSIS: History of colon polyps. POSTOPERATIVE DIAGNOSIS: Colon polyps. OPERATION PERFORMED: Colonoscopy with polypectomy. INDICATIONS FOR SURGERY: This 73-year-old male has a known history of colon polyps. He comes today for surveillance colonoscopy. FINDINGS: Two polyps are noted on today's exam. There is a 5 mm sessile polyp in the ascending colon and a 5 mm sessile polyp at the level of the hepatic flexure. The remainder of the colon and rectum appeared normal. DESCRIPTION OF PROCEDURE: The patient was taken to the operating room. He was given intravenous sedation and with him in the left lateral decubitus position, digital rectal exam was performed showing no rectal masses. The Olympus colonoscope was inserted into the rectum. Retroflexed examination of the rectal canal was performed. The scope was then carefully advanced under direct visualization through the entire length of the colon until the cecum is reached. Cecal acquisition is confirmed by noting the normal internal cecal anatomy including the appendiceal orifice and ileocecal valve. The ileocecal valve was cannulated and the terminal ileum examined. It also appeared normal. The scope was then slowly withdrawn and during withdrawal of the scope at both the ascending colon and hepatic flexure levels, the above-described polyps are identified. These were each removed grossly in their entirety with multiple bites of the cold biopsy forceps. The examination was then completed, and after the entire colon and rectum had been fully examined and with no sign of any complication, the scope was removed and the patient was taken from the operating room in satisfactory condition. ESTIMATED BLOOD LOSS: 1 mL. COMPLICATIONS: None. PROGNOSIS: Good. /[id number]/MODL
== END 2019-07-26 15:50 | disposition home or self-care (01) ==
LOC: KA.SDS 11:33
PROVIDERS: ATTEND Surgery
DX: Z12.11 Encounter for screening for malignant neoplasm of colon (principal); D12.2 Benign neoplasm of ascending colon; D12.3 Benign neoplasm of transverse colon; K21.9 Gastro-esophageal reflux disease without esophagitis; I48.91 Unspecified atrial fibrillation; J45.909 Unspecified asthma, uncomplicated; E66.9 Obesity, unspecified; E78.00 Pure hypercholesterolemia, unspecified; I10 Essential (primary) hypertension; E53.8 Deficiency of other specified B group vitamins; Z68.36 Body mass index [BMI] 36.0-36.9, adult; Z90.49 Acquired absence of other specified parts of digestive tract; Z79.01 Long term (current) use of anticoagulants; Z87.891 Personal history of nicotine dependence; Z98.890 Other specified postprocedural states; Z79.899 Other long term (current) drug therapy; Z86.010 Personal history of colon polyps
CPT/HCPCS: 00811; 45380; J2250; J2704; J7120; 88305

== ENCOUNTER 2019-08-04 13:10 | Observation (INO) | payer MEDICARE, OTHER ==
[2019-08-04] MEDS ORDERED: Bisacodyl 10 MG Supp RECTAL PRN (13:36)
[2019-08-04] MEDS ORDERED: Acetaminophen 325 MG Tab PO PRN (13:36)
[2019-08-04] MEDS ORDERED: hydrOXYzine HCl 25 MG Tab PO PRN (13:36)
[2019-08-04] MEDS: Sodium Chloride 0.9% 10 ML Syringe FLUSH PRN ×2 (14:27→16:01)
[2019-08-04] MEDS: cefTRIAXone 1 GM Vial IVPUSH SCH (14:27)
[2019-08-04 14:33] LABS: ANION GAP 11.6 mmol/L (5-15); CHLORIDE,CL 108 mmol/L (98-115); SODIUM,NA 144 mmol/L (136-145)
[2019-08-04] MEDS: Furosemide 40 MG/4 ML VIAL IVPUSH SCH (16:00)
[2019-08-04] MEDS: Rosuvastatin 10 MG Tab PO SCH (20:01)
[2019-08-05 07:56] LABS: ANION GAP 14.1 mmol/L (5-15); CHLORIDE,CL 103 mmol/L (98-115); SODIUM,NA 141 mmol/L (136-145)
[2019-08-05] MEDS: Diltiazem 180 MG Cap.CD PO SCH (08:15)
[2019-08-05] MEDS: Magnesium Oxide 500 MG Tab PO SCH (08:18)
[2019-08-05] MEDS: Hydrochlorothiazide 25 MG Tab PO SCH (08:18)
[2019-08-05] MEDS: Aspirin 81 MG Tab.EC PO SCH (08:18)
[2019-08-05] MEDS: Allopurinol 100 MG Tab PO SCH (08:19)
[2019-08-05] MEDS: Lisinopril 20 MG Tab PO SCH (08:19)
[2019-08-05] MEDS: Cyanocobalamin (Vitamin B12) 500 MCG Tab PO SCH (08:19)
[2019-08-05] MEDS: Pantoprazole 40 MG Tab.CR PO SCH (08:19)
[2019-08-05] MEDS: Sodium Chloride 0.9% 10 ML Syringe FLUSH PRN ×3 (08:26→17:59)
[2019-08-05] MEDS: Furosemide 40 MG/4 ML VIAL IVPUSH SCH ×2 (08:27→17:59)
[2019-08-05] MEDS ORDERED: Cholecalciferol (Vitamin D3) 25 MCG Tab PO SCH (09:00)
[2019-08-05] MEDS: Potassium Chloride 20 MEQ Tab.ER PO SCH (13:37)
[2019-08-05] MEDS: cefTRIAXone 1 GM Vial IVPUSH SCH (13:40)
[2019-08-05] MEDS: Rosuvastatin 10 MG Tab PO SCH (22:11)
[2019-08-06 07:35] LABS: ANION GAP 15.4 mmol/L (5-15); CHLORIDE,CL 103 mmol/L (98-115); SODIUM,NA 143 mmol/L (136-145)
[2019-08-06] MEDS: Potassium Chloride 20 MEQ Tab.ER PO SCH (09:10)
[2019-08-06] MEDS: Aspirin 81 MG Tab.EC PO SCH (09:10)
[2019-08-06] MEDS: Pantoprazole 40 MG Tab.CR PO SCH (09:10)
[2019-08-06] MEDS: Allopurinol 100 MG Tab PO SCH (09:11)
[2019-08-06] MEDS: Cyanocobalamin (Vitamin B12) 500 MCG Tab PO SCH (09:11)
[2019-08-06] MEDS: Magnesium Oxide 500 MG Tab PO SCH (09:11)
[2019-08-06] MEDS: Hydrochlorothiazide 25 MG Tab PO SCH (10:22)
[2019-08-06] MEDS: Lisinopril 20 MG Tab PO SCH (10:23)
[2019-08-06] MEDS: Furosemide 40 MG/4 ML VIAL IVPUSH SCH (10:23)
[2019-08-06] MEDS: Diltiazem 180 MG Cap.CD PO SCH (10:24)
[2019-08-06] MEDS ORDERED: Furosemide 40 MG Tab PO SCH (14:00)
[2019-08-06] MEDS ORDERED: Furosemide 40 MG/4 ML VIAL IVPUSH SCH (14:00)
[2019-08-06] MEDS: Sodium Chloride 0.9% 10 ML Syringe FLUSH PRN (14:51)
[2019-08-06] MEDS: cefTRIAXone 1 GM Vial IVPUSH SCH (15:32)
[2019-08-06] MEDS: Cephalexin 250 MG Cap PO SCH ×2 (15:40→21:00)
[2019-08-06] MEDS: Rosuvastatin 10 MG Tab PO SCH (21:00)
[2019-08-07 08:27] LABS: ANION GAP 16.8 mmol/L (5-15); CHLORIDE,CL 112 mmol/L (98-115); SODIUM,NA 151 mmol/L (136-145)
[2019-08-07] MEDS ORDERED: Cyanocobalamin (Vitamin B12) 1,000 MCG/ML SDV IM SCH (09:00)
[2019-08-07] MEDS: Potassium Chloride 20 MEQ Tab.ER PO SCH (09:09)
[2019-08-07] MEDS: Cephalexin 250 MG Cap PO SCH (09:09)
[2019-08-07] MEDS: Aspirin 81 MG Tab.EC PO SCH (09:09)
[2019-08-07] MEDS: Magnesium Oxide 500 MG Tab PO SCH (09:09)
[2019-08-07] MEDS: Cyanocobalamin (Vitamin B12) 500 MCG Tab PO SCH (09:10)
[2019-08-07] MEDS: Allopurinol 100 MG Tab PO SCH (09:10)
[2019-08-07] MEDS: Pantoprazole 40 MG Tab.CR PO SCH (09:10)
[2019-08-07] MEDS ORDERED: Sulfamethoxazole/Trimethoprim 800-160 MG Tab PO ONE (10:43)
--- NOTE | 2019-08-07 10:58 | PCM.DCSUM1 ---
Discharge Summary - Hospital Course Free Text/Narrative:: Admission Date: 08/04/2019 Discharge Date: 08/07/2019 Disposition: Home, Self-Care Code Status: DNR/DNI Admission Diagnoses: Worsening peripheral edema, not responding to home lasix, with blistering and open wound Cellulitis, RLE with open blister Hypomagnesemia Discharge Diagnoses: Peripheral Edema, markedly improved with IV lasix, will resume home lasix. Cellulitis, RLE, treated in hospital with IV ceftriaxone, culture showing Staph Aureus, discharging on home Bactrim DS Hypomagnesemia, resolved Hypernatremia, iatrogenic, follow-up in clinic within 1 week for BMP and B12 level Secondary Diagnoses: Atrial fibrillation Hyperlipidemia HTN Gout B12 Deficiency Insomnia Acid Reflux Constipation New Medications at Discharge: Bactrim DS 1 tab PO BID x 10 days, this was sent through his outpatient chart to [facility]. Resume all other home meds Tim is a very pleasant male who was seen in the the clinic on 08/04/2019 due to bilateral lower extremity edema with blistering and erythema of his RLE. He is on lasix as an outpatient 20 mg PO daily but had been holding this as he recently had a colonoscopy on 07/26/2019 and he also does not take it if he will be traveling due to increased urinary frequency. He had been back on this lasix for several days but the swelling was getting worse and with the erythema of the RLE with open blister he was concerned for infection. He was admitted to the hospital and started on furosemide 40 mg IV BID as well as ceftriaxone for the cellulitis. He diuresed a total of 12 pounds and he feels much better. He was never SOB. His legs are back to their typical size. He was noted to have a 3 cm x 2.5 cm open blister of the RLE. The erythema is markedly improved. This was growing Staph Aureus, sensitivities are pending. He will be discharged on Bactrim DS 1 tab PO BID x 10 days. Labs were all stable, he did get started on potassium due to decreasing potassium on lasix although he never became hypokalemic. This will be discontinued at discharge. His magnesium was low and this was replaced orally. No continuation of this at home and will monitor mag level with labs. He has a hx of elevated BG on labs with a normal A1C performed in clinic. No diagnosis of diabetes at this time. Will monitor as an outpatient. He did have some hypotension on 08/05, this antihypertensive meds were held. BP has improved and he will resume his outpatient BP meds. Follow-up in clinic with labs within 1 week. Diagnosis: Stroke: No Modified Laurel Scale: No Symptoms at All Modified Laurel Scale Score: 0 - Discharge Data Discharge Date: 08/07/19 Discharge Disposition: Home, Self-Care 01 Condition: Good - Referral to Home Health Primary Care Physician: Joyce Esquivel PA-C - Patient Summary/Data Recommended Follow-up Testing/Procedures: BMP, B12 level. - Patient Instructions Diet: Regular Diet as Tolerated Notify Provider of: Fever, Increased Pain, Swelling and Redness, Drainage - Discharge Plan *PRESCRIPTION DRUG MONITORING PROGRAM REVIEWED*: Not Applicable *COPY OF PRESCRIPTION DRUG MONITORING REPORT IN PATIENT SMILEY: Not Applicable Home Medications: Home Meds Dabigatran [Pradaxa] 150 mg PO BID 11/01/13 [History] Rosuvastatin [Crestor] 40 mg PO BEDTIME 11/01/13 [History] Aspirin [Adult Low Dose Aspirin EC] 81 mg PO DAILY 10/13/15 [History] Pantoprazole Sodium 40 mg PO DAILY 10/13/15 [History] Acetaminophen [Tylenol] 325 mg PO Q6H PRN 04/23/18 [History] Lisinopril 40 mg PO DAILY 04/23/18 [History] allopurinoL [Zyloprim] 100 mg PO DAILY 04/23/18 [History] hydrOXYzine HCL [hydrOXYzine] 50 mg PO BEDTIME PRN 04/23/18 [History] Furosemide 20 mg PO DAILY 12/23/18 [History] Diltiazem HCl [Diltiazem 24Hr ER] 180 mg PO DAILY 06/28/19 [History] Sennosides/Docusate Sodium [Senna Plus 8.6-50 mg Tablet] 1 each PO DAILY PRN 04/06 [History] hydroCHLOROthiazide [Hydrochlorothiazide] 25 mg PO DAILY 06/28/19 [History] Cyanocobalamin (Vitamin B-12) [Cyanocobalamin Injection] 1,000 mcg IM Q30D 08/03 [History] Cyanocobalamin (Vitamin B-12) [Vitamin B-12] 1 tab PO DAILY 08/04/19 [History] - Discharge Summary/Plan Comment DC Time >30 min.: No - General Info Date of Service: 08/07/19 Admission Dx/Problem (Free Text: Peripheral Edema RLE cellulitis Open blister RLE - Patient Data Vitals - Most Recent: Last Vital Signs Temp 96.0 F L 08/07/19 06:31 Pulse 78 08/07/19 06:31 Resp 20 08/07/19 06:31 BP 132/74 08/07/19 06:31 Pulse Ox 98 08/07/19 06:31 Weight - Most Recent: 247 lb 8 oz I&O - Last 24 hours: Intake & Output 08/06/19 08/07/19 08/07/19 22:59 06:59 14:59 Intake Total 420 250 Output Total 950 300 Balance -530 -50 Lab Results - Last 24 hrs: Laboratory Results - last 24 hr 08/07/19 08/07/19 Range/Units 07:08 07:08 WBC 4.40 L (5.00-10.00) 10^3/uL RBC 5.18 (4.50-6.00) 10^6/uL Hgb 16.2 (13.0-17.0) g/dL Hct 46.6 (40.0-52.0) % MCV 90.0 (82.0-92.0) fL MCH 31.3 H (27.0-31.0) pg MCHC 34.8 (32.0-36.0) g/dL RDW 12.2 (11.5-14.5) % Plt Count 190 (150-400) 10^3/uL MPV 9.3 (7.4-10.4) fL Immature Gran % (Auto) 0.2 (0.0-5.0) % Neut % (Auto) 52.3 (50.0-70.0) % Lymph % (Auto) 30.2 (20.0-40.0) % Coryell % (Auto) 12.3 H (2.0-8.0) % Eos % (Auto) 4.1 H (1.0-3.0) % Baso % (Auto) 0.9 (0.0-1.0) % Immature Gran # (Auto) 0.01 (0.00-0.50) 10^3/uL Neut # (Auto) 2.30 L (2.50-7.00) 10^3/uL Lymph # (Auto) 1.33 (1.00-4.00) 10^3/uL Coryell # (Auto) 0.54 (0.10-0.80) 10^3/uL Eos # (Auto) 0.18 (0.10-0.30) 10^3/uL Baso # (Auto) 0.04 (0.00-0.10) 10^3/uL Sodium 151 H (136-145) mmol/L Potassium 4.6 (3.3-5.3) mmol/L Chloride 112 (98-115) mmol/L Carbon Dioxide 26.8 (21.0-32.0) mmol/L Anion Gap 16.8 H (5-15) mmol/L BUN 21 (6-25) mg/dL Creatinine 1.02 (0.51-1.17) mg/dL Est Cr Clr Drug Dosing 65.60 mL/min Estimated GFR (MDRD) > 60 mL/min Glucose 108 H (75 - 99) mg/dL Calcium 8.9 (8.7-10.3) mg/dL Magnesium 2.0 (1.8-2.4) mg/dL Total Bilirubin 1.0 (0.2-1.0) mg/dL AST 21 (15-37) U/L ALT 20 (12-78) U/L Alkaline Phosphatase 77 (46-116) IU/L Total Protein 6.2 L (6.4-8.2) g/dL Albumin 3.40 (3.00-4.80) g/dL TOBY Results - Last 24 hrs: Microbiology 08/04/19 14:15 Miscellaneous Reference Culture - Preliminary Wound - Leg, Right Staphylococcus Aureus Gram Stain - Final Med Orders - Current: Current Medications Acetaminophen (Tylenol) 325 mg PO Q6H PRN PRN Reason: Pain Last Admin: 08/05/19 02:07 Dose: 325 mg Allopurinol (Zyloprim) 100 mg PO DAILY [facility] Last Admin: 08/07/19 09:10 Dose: 100 mg Aspirin (Halfprin) 81 mg PO DAILY [facility] Last Admin: 08/07/19 09:09 Dose: 81 mg Cephalexin (Keflex) 500 mg PO TID [facility] Stop: 08/13/19 15:46 Last Admin: 08/07/19 09:09 Dose: 500 mg Cyanocobalamin (Vitamin B12) 1,000 mcg IM Q30D [facility] Last Admin: 08/07/19 10:30 Dose: Not Given Cyanocobalamin (Vitamin B12) 1,000 mcg PO DAILY [facility] Last Admin: 08/07/19 09:10 Dose: 1,000 mcg Dabigatran (Pradaxa) 150 mg PO BID [facility] Last Admin: 08/07/19 09:10 Dose: 150 mg Furosemide (Lasix) 40 mg PO DAILY@1400 [facility] Last Admin: 08/06/19 15:38 Dose: 40 mg Hydroxyzine HCl (Atarax) 50 mg PO BEDTIME PRN PRN Reason: Other Magnesium Oxide (Magnesium Oxide) 500 mg PO DAILY [facility] Last Admin: 08/07/19 09:09 Dose: 500 mg Pantoprazole Sodium (Protonix) 40 mg PO DAILY [facility] Last Admin: 08/07/19 09:10 Dose: 40 mg Potassium Chloride (Klor-Con M20) 20 meq PO DAILY [facility] Last Admin: 08/07/19 09:09 Dose: 20 meq Rosuvastatin Calcium (Crestor) 40 mg PO BEDTIME [facility] Last Admin: 08/06/19 21:00 Dose: 40 mg Senna/Docusate Sodium (Senna Plus) 1 tab PO DAILY PRN PRN Reason: Constipation Sodium Chloride (Saline Flush) 10 ml FLUSH Q8HR PRN PRN Reason: keep vein open Last Admin: 08/06/19 14:51 Dose: 10 ml Discontinued Medications Ceftriaxone Sodium (Rocephin) 1 gm IVPUSH Q24H [facility] Last Admin: 08/06/19 15:32 Dose: Not Given Diltiazem HCl (Cardizem Cd) 180 mg PO DAILY [facility] Last Admin: 08/06/19 10:24 Dose: Not Given Furosemide (Lasix) 40 mg IVPUSH BIDDIURETIC [facility] Last Admin: 08/06/19 10:23 Dose: Not Given Furosemide (Lasix) 40 mg IVPUSH DAILY@1400 [facility] Last Admin: 08/06/19 15:32 Dose: Not Given Hydrochlorothiazide (Hydrochlorothiazide) 25 mg PO DAILY [facility] Last Admin: 08/06/19 10:22 Dose: Not Given Lisinopril (Prinivil) 40 mg PO DAILY [facility] Last Admin: 08/06/19 10:23 Dose: Not Given Trimethoprim/Sulfamethoxazole (Septra Ds) 2 tab PO ONETIME ONE Stop: 08/07/19 10:44 - Exam General: Reports: Alert, Oriented, Cooperative, No Acute Distress Lungs: Reports: Clear to Auscultation, Normal Respiratory Effort Cardiovascular: Reports: No Murmurs, Irregular Rhythm GI/Abdominal Exam: Normal Bowel Sounds Extremities: Other (Markedly improved edema, erythema of RLE nearly resolved. ) Wound/Incisions: Reports: Other (3 cm x 2.5 cm blister on RLE, skin removed today with sterile instruments.)
[2019-08-07 11:11] VITALS: BP 149/94; PULSE 70
--- NOTE | 2019-08-08 09:34 | PN ---
08/05/2019 PATIENT NAME: HAILEY DOTSON SUBJECTIVE: This is a 73-year-old male, who was admitted to the hospital yesterday with bilateral lower extremity edema with the right being worse than the left. He also had an open wound on the anterior aspect of his right lower leg with an associated cellulitis. He was admitted to the hospital for diuresis as well as IV antibiotics. His weight on admission yesterday was 258 pounds. Today, he is down to 249 pounds. He states he feels quite a bit better. LABORATORY DATA: Lab work from today shows a stable CBC. Yesterday, his magnesium was low and he was given 500 mg of magnesium. Magnesium improved from 1.7 to 1.8. Potassium went from 4.2 to 3.6, which would be expected with the diuresis. We will start him on oral potassium replacement today. The patient does have a history of atrial fibrillation and is taking Pradaxa. He does have a controlled ventricular rate. He has hypertension and is taking a combination of lisinopril, diltiazem, as well as hydrochlorothiazide. He has gout and is taking allopurinol. He is on a daily aspirin regimen. He has vitamin B12 deficiency. He is currently taking oral B12 supplement as well as a monthly B12 injection. He takes hydroxyzine at bedtime for insomnia. He has gastroesophageal reflux disease and taking pantoprazole. For constipation, he does use senna and/or Dulcolax suppositories. His most recent echo as well as stress test, colonoscopy, and lower extremity arterial studies were outlined in the patient's history and physical on admission. OBJECTIVE: VITAL SIGNS: Temp is 96.5, pulse is 88, respirations 20, blood pressure 143/81, oxygen saturation is 98% on room air. SKIN: Warm and dry to touch. CARDIAC: Reveals an irregularly irregular rhythm with controlled ventricular rate. There is no click, gallop, or rub auscultated. LUNGS: Clear without rales, wheezes, or rhonchi. ABDOMEN: Soft, nontender with bowel sounds present in all 4 quadrants. He does have lower extremity edema which has improved since yesterday. He does have an open wound on the anterior aspect of his right lower extremity with associated cellulitis also improved. The wound was measured today, it was 3.5 x 2 cm. IMPRESSION: 1. Bilateral lower extremity edema with right being worse than the left, improved with an 8-pound diuresis overnight. 2. Cellulitis of the right lower extremity with open wound requiring antibiotics. We will continue to monitor this closely. He is on ceftriaxone. All of the medications are continued as before. Dr. Adela Monroe, his primary care provider also examined the patient today and measured the wound. We will continue to follow and plan for discharge possibly on Wednesday, August 07, 2019. The patient is agreeable with the plan of care and wishes to proceed. /[id number]/MODL
--- NOTE | 2019-08-08 09:44 | PN ---
08/06/2019 PATIENT NAME: HAILEY DOTSON SUBJECTIVE: This is a 73-year-old male, who was admitted to the hospital on 08/04/2019 with lower extremity edema and a wound to the right lower extremity. He has been treated with IV Lasix as well as ceftriaxone for cellulitis. The patient has had a total of 12-pound diuresis with b.i.d. Lasix at 40 mg. Today, he is hypotensive. His blood pressures have been low at 86/63 on the left and 87/63 on the right. A manual cuff was taken, and it was 98/68. He is on several antihypertensive medications including diltiazem, lisinopril, as well as HCTZ. These will be held today. We will continue the intravenous Lasix, but just once a day. Plan is to discharge him tomorrow if he is stable. He is asymptomatic with his hypotension. LABORATORY DATA: Today, white count is still little low. This has been a chronic finding for him. BUN and creatinine are 21 and 1.14. This is a little higher than it was before, however, still considered within normal limits. Potassium is normal at 3.6. We did start him on potassium supplementation yesterday due to the high-dose diuretic he was receiving. Magnesium is stable at 1.9. He was started on magnesium supplementation on admission due to a magnesium of 1.7. The patient is ready to go home, however, is willing to stay due to the blood pressure issue. OBJECTIVE: VITAL SIGNS: Temperature is 97.2, pulse 84, respirations 24, blood pressure 131/81 with an oxygen saturation of 96%. SKIN: Warm and dry to touch. CARDIAC: Reveals S1 and S2 to be normal. Rate and rhythm are regular. Please note, it was previously irregular and was irregular for the nurse, but regular for me. No murmur, click, or gallop is auscultated. LUNGS: Clear without rales, wheezes, or rhonchi. ABDOMEN: Soft, obese, and nontender. Bowel sounds present in all 4 quadrants. He does have bilateral pedal edema with the right being worse than the left however, this is much improved from admission. He does have an open wound on the right anterior lower extremity, which was measured yesterday by Dr. Adela Monroe. It was documented in his progress note yesterday. IMPRESSION: 1. Bilateral lower extremity edema. This has improved with diuretic therapy. We will reduce his Lasix from 40 mg IV b.i.d. to 40 mg IV daily. 2. Cellulitis with a wound on the right anterior lower extremity. He will continue ceftriaxone. 3. Hypertension. Now he is hypotensive. We are going to hold his antihypertensive medications today, namely diltiazem, lisinopril, as well as hydrochlorothiazide and monitor closely. 4. He does have a history of atrial fibrillation and he is taking Pradaxa for cerebrovascular accident prophylaxis. He is on diltiazem for rate control. I have requested that the staff call me if his heart rate goes above 120. 5. Gout. He is on allopurinol. 6. He is on a daily aspirin regimen. 7. He has B12 deficiency and takes oral B12 supplementation as well as monthly B12 injection. 8. Gastroesophageal reflux disease on pantoprazole. I will report my findings to Dr. Adela Monroe, who is going to see the patient tomorrow. She is his PCP. /[id number]/MODL
== END 2019-08-07 11:40 | disposition home or self-care (01) ==
LOC: KA.MS 13:10
DX: R60.0 Localized edema (principal); L03.115 Cellulitis of right lower limb; B95.61 Methicillin susceptible Staphylococcus aureus infection as the cause of diseases classified elsewhere; I10 Essential (primary) hypertension; K21.9 Gastro-esophageal reflux disease without esophagitis; E78.00 Pure hypercholesterolemia, unspecified; I48.91 Unspecified atrial fibrillation; G47.00 Insomnia, unspecified; I95.9 Hypotension, unspecified; E53.8 Deficiency of other specified B group vitamins; M10.9 Gout, unspecified; E83.42 Hypomagnesemia; E87.0 Hyperosmolality and hypernatremia; K59.00 Constipation, unspecified; D12.2 Benign neoplasm of ascending colon; D12.3 Benign neoplasm of transverse colon; Z66 Do not resuscitate; Z79.899 Other long term (current) drug therapy; Z79.82 Long term (current) use of aspirin; Z91.14 Patient's other noncompliance with medication regimen; Z98.890 Other specified postprocedural states; Z79.01 Long term (current) use of anticoagulants
CPT/HCPCS: 36415; 80053; 83735; 85025; 87070; 87186; 87205; 96374; 96375; 96376; A9270-GY; G0378; J0696; J1940

== ENCOUNTER 2019-08-26 01:25 | Emergency (ER) | payer MEDICARE, OTHER ==
[2019-08-26 01:32] VITALS: BP 149/88; PULSE 74
--- NOTE | 2019-08-26 02:00 | EDM.PDOC ---
ED HPI GENERAL MEDICAL PROBLEM - General Chief Complaint: General Stated Complaint: return of hematoma to L hand Time Seen by Provider: 08/26/19 01:55 Source of Information: Reports: Patient History Limitations: Reports: No Limitations - History of Present Illness INITIAL COMMENTS - FREE TEXT/NARRATIVE: Patient is a 73-year-old gentleman who presents to the emergency department this morning with a complaint of hematoma to left hand. Patient states that he sustained hematoma 2 days ago. He was seen in the clinic earlier today and the hematoma was drained with needle aspiration. Patient states that he was watching TV this evening and noticed the hematoma had reappeared. He became concerned so presented to emergency department. Patient denies reinjury, fever , extremity discomfort, or any other injury. Onset: Gradual Duration: Day(s): Location: Reports: Upper Extremity, Left Severity: Mild Improves with: Reports: None Worsens with: Reports: None Associated Symptoms: Reports: No Other Symptoms - Related Data Allergies Allergy/AdvReac Type Severity Reaction Status Date / Time No Known Allergies Allergy Verified 08/26/19 01:29 Home Meds: Home Meds Dabigatran [Pradaxa] 150 mg PO BID 11/01/13 [History] Rosuvastatin [Crestor] 40 mg PO BEDTIME 11/01/13 [History] Aspirin [Adult Low Dose Aspirin EC] 81 mg PO DAILY 10/13/15 [History] Pantoprazole Sodium 40 mg PO DAILY 10/13/15 [History] Acetaminophen [Tylenol] 325 mg PO Q6H PRN 04/23/18 [History] Lisinopril 40 mg PO DAILY 04/23/18 [History] allopurinoL [Zyloprim] 100 mg PO DAILY 04/23/18 [History] hydrOXYzine HCL [hydrOXYzine] 50 mg PO BEDTIME PRN 04/23/18 [History] Furosemide 20 mg PO DAILY 12/23/18 [History] Diltiazem HCl [Diltiazem 24Hr ER] 180 mg PO DAILY 06/28/19 [History] Sennosides/Docusate Sodium [Senna Plus 8.6-50 mg Tablet] 1 each PO DAILY PRN 04/06 [History] hydroCHLOROthiazide [Hydrochlorothiazide] 25 mg PO DAILY 06/28/19 [History] Cyanocobalamin (Vitamin B-12) [Cyanocobalamin Injection] 1,000 mcg IM Q30D 08/03 [History] Cyanocobalamin (Vitamin B-12) [Vitamin B-12] 1 tab PO DAILY 08/04/19 [History] Past Medical History HEENT History: Reports: Impaired Vision Cardiovascular History: Reports: Afib, High Cholesterol, Hypertension Respiratory History: Reports: Asthma, COPD, Sleep Apnea Gastrointestinal History: Reports: Colon Polyp, GERD, Hemorrhoids Genitourinary History: Reports: Prostate Disorder, Renal Calculus Musculoskeletal History: Reports: Arthritis, Back Pain, Chronic Neurological History: Reports: Headaches, Chronic Psychiatric History: Reports: Depression, PTSD Endocrine/Metabolic History: Reports: Obesity/BMI 30+ Hematologic History: Reports: None Immunologic History: Reports: Immunosuppression Oncologic (Cancer) History: Reports: Prostate Dermatologic History: Reports: Cellulitis - Infectious Disease History Infectious Disease History: Reports: None - Past Surgical History HEENT Surgical History: Reports: Eye Surgery, Other (See Below) Other HEENT Surgeries/Procedures: eyelids Cardiovascular Surgical History: Reports: None Respiratory Surgical History: Reports: None GI Surgical History: Reports: Cholecystectomy, Colonoscopy, Hernia, Inguinal, Polypectomy Male Surgical History: Reports: Prostate Biopsy, Other (See Below) Other Male Surgeries/Procedures: prostate cancer with radiation Endocrine Surgical History: Reports: None Neurological Surgical History: Reports: None Musculoskeletal Surgical History: Reports: Shoulder Surgery Oncologic Surgical History: Reports: None Dermatological Surgical History: Reports: None Social & Family History - Family History Family Medical History: Noncontributory - Tobacco Use Smoking Status *Q: Former Smoker Used Tobacco, but Quit: Yes Month/Year Tobacco Last Used: 1959 - Caffeine Use Caffeine Use: Reports: Coffee Other Caffeine Use: boost - Recreational Drug Use Recreational Drug Use: No ED ROS GENERAL - Review of Systems Review Of Systems: Comprehensive ROS is negative, except as noted in HPI. Constitutional: Reports: No Symptoms HEENT: Reports: No Symptoms Respiratory: Reports: No Symptoms Cardiovascular: Reports: No Symptoms Endocrine: Reports: No Symptoms GI/Abdominal: Reports: No Symptoms : Reports: No Symptoms Musculoskeletal: Reports: No Symptoms Skin: Reports: Other (Hematoma to left hand) Neurological: Reports: No Symptoms Psychiatric: Reports: No Symptoms Hematologic/Lymphatic: Reports: No Symptoms Immunologic: Reports: No Symptoms ED EXAM, GENERAL - Physical Exam Exam: See Below Exam Limited By: No Limitations General Appearance: Alert, WD/WN, No Apparent Distress Throat/Mouth: Normal Inspection, Normal Oropharynx, No Airway Compromise Respiratory/Chest: No Respiratory Distress Extremities: Normal Inspection, Normal Capillary Refill Neurological: Alert, Oriented, Normal Cognition Psychiatric: Normal Affect, Normal Mood Skin Exam: Warm, Dry, Intact, Normal Color, No Rash, Other (There is a 2-1/2 cm linear hematoma at the dorsal aspect of left hand. There is no surrounding erythema, or sign of infection.) Lymphatic: No Adenopathy Course - Vital Signs Last Recorded V/S: Last Vital Signs Temp 98.2 F 08/26/19 01:30 Pulse 74 08/26/19 01:30 Resp 20 08/26/19 01:30 BP 149/88 H 08/26/19 01:30 Pulse Ox 99 08/26/19 01:30 - Re-Assessments/Exams Free Text/Narrative Re-Assessment/Exam: 08/26/19 01:59 Patient afebrile, vital signs stable, hematoma was not drained, but a pressure dressing was applied for resolution. She'll follow-up at clinic Departure - Departure Time of Disposition: 02:00 Disposition: Home, Self-Care 01 Condition: Good Clinical Impression: Hematoma - Discharge Information Instructions: Hand Contusion, [id number] Referrals: Adela Temple MD [Primary Care Provider] - Additional Instructions: Follow-up at clinic in 1-2 days. Maintain pressure dressing for resolution of hematoma. Sepsis Event Note - Evaluation Sepsis Screening Result: No Definite Risk - Focused Exam Vital Signs: Vital Signs Temp Pulse Resp BP Pulse Ox 08/26/19 01:30 98.2 F 74 20 149/88 H 99 Date Exam was Performed: 08/26/19 Time Exam was Performed: 01:55 - Assessment/Plan Assessment:: Hematoma to left hand Plan: Follow-up at clinic
== END 2019-08-26 02:15 | disposition home or self-care (01) ==
LOC: KA.ED 01:25
DX: S60.222A Contusion of left hand, initial encounter (principal); I10 Essential (primary) hypertension; E78.00 Pure hypercholesterolemia, unspecified; I48.91 Unspecified atrial fibrillation; J44.9 Chronic obstructive pulmonary disease, unspecified; K21.9 Gastro-esophageal reflux disease without esophagitis; M19.90 Unspecified osteoarthritis, unspecified site; F32.9 Major depressive disorder, single episode, unspecified; E66.9 Obesity, unspecified; Z68.36 Body mass index [BMI] 36.0-36.9, adult; Z90.49 Acquired absence of other specified parts of digestive tract; Z87.891 Personal history of nicotine dependence; Z79.82 Long term (current) use of aspirin; Z79.899 Other long term (current) drug therapy; X58.XXXA Exposure to other specified factors, initial encounter
CPT/HCPCS: 99283

== ENCOUNTER 2019-10-07 13:52 | Inpatient (IN) | payer MEDICARE, OTHER ==
[2019-10-07] MEDS ORDERED: hydrOXYzine HCl 25 MG Tab PO PRN (14:20)
[2019-10-07] MEDS ORDERED: Acetaminophen 325 MG Tab PO PRN (14:20)
[2019-10-07] MEDS ORDERED: cefTRIAXone 1 GM Vial IVPUSH SCH (14:30)
[2019-10-07 15:15] LABS: CHLORIDE,CL 108 mmol/L (98-115); SODIUM,NA 143 mmol/L (136-145)
[2019-10-07] MEDS: Furosemide 40 MG/4 ML VIAL IVPUSH SCH (17:36)
[2019-10-07] MEDS: Sodium Chloride 0.9% 50 ML IV SCH (20:02)
[2019-10-07] MEDS: PRADAXA 150 MG PO SCH (21:15)
[2019-10-07] MEDS: ROSUVASTATIN 40 MG PO SCH (21:16)
[2019-10-08 07:31] LABS: ANION GAP 14.2 mmol/L (5-15); CHLORIDE,CL 106 mmol/L (98-115); SODIUM,NA 142 mmol/L (136-145)
[2019-10-08] MEDS: Aspirin 81 MG Tab.EC PO SCH (08:49)
[2019-10-08] MEDS: Hydrochlorothiazide 25 MG Tab PO SCH (08:49)
[2019-10-08] MEDS: Pantoprazole 40 MG Tab.CR PO SCH (08:49)
[2019-10-08] MEDS: Diltiazem 180 MG Cap.CD PO SCH (08:49)
[2019-10-08] MEDS: Cyanocobalamin (Vitamin B12) 500 MCG Tab PO SCH (08:49)
[2019-10-08] MEDS: Lisinopril 20 MG Tab PO SCH (08:49)
[2019-10-08] MEDS: Allopurinol 100 MG Tab PO SCH (08:49)
[2019-10-08] MEDS: Furosemide 40 MG/4 ML VIAL IVPUSH SCH ×2 (08:50→18:31)
[2019-10-08] MEDS: PRADAXA 150 MG PO SCH ×2 (08:50→21:56)
--- NOTE | 2019-10-08 10:46 | PCM.PN ---
- General Info Date of Service: 10/08/19 Admission Dx/Problem (Free Text): Peripheral edema Cellulitis RLE - Review of Systems Systems Review Comment:: Tim is a very pleasant gentleman admitted on 10/06 from the clinic with worsening peripheral edema, not responding to home lasix dose of 20 mg PO BID, with blistering bilaterally, R>L and cellulitis of the RLE. He as admitted for IV lasix as well as IV antibiotics. Previous culture results grew MRSA and so he was switched from ceftriaxone to vancomycin (pharm to dose). He states the swelling had been getting progressively worse over the past 2 weeks with the erythema starting one week ago. He has a small ulceration on the right lower extremity approximately the size of a nickel. No drainage. He has no pain, no SOB. No other symptoms. Weight is down 8 lbs from yesterday with 40 mg of lasix IV BID. No questions or concerns noted by Tim. He states his erythema is markedly improved. - Patient Data Vitals - Most Recent: Last Vital Signs Temp 98.6 F 10/08/19 06:43 Pulse 83 10/08/19 08:49 Resp 18 10/08/19 06:43 BP 139/84 10/08/19 08:49 Pulse Ox 100 10/08/19 06:43 Weight - Most Recent: 252 lb 11.2 oz I&O - Last 24 Hours: Intake & Output 10/07/19 10/08/19 10/08/19 22:59 06:59 14:59 Intake Total 942 200 Output Total 1425 500 Balance -483 -300 Lab Results Last 24 Hours: Laboratory Results - last 24 hr 10/07/19 10/07/19 10/08/19 Range/Units 14:45 14:45 06:55 WBC 4.38 L 3.13 L (5.00-10.00) 10^3/uL RBC 4.97 4.96 (4.50-6.00) 10^6/uL Hgb 15.4 15.3 (13.0-17.0) g/dL Hct 45.2 45.1 (40.0-52.0) % MCV 90.9 90.9 (82.0-92.0) fL MCH 31.0 30.8 (27.0-31.0) pg MCHC 34.1 33.9 (32.0-36.0) g/dL RDW 13.4 13.3 (11.5-14.5) % Plt Count 222 195 (150-400) 10^3/uL MPV 9.4 9.3 (7.4-10.4) fL Immature Gran % (Auto) 0.2 0.3 (0.0-5.0) % Neut % (Auto) 65.5 48.2 L (50.0-70.0) % Lymph % (Auto) 20.1 31.0 (20.0-40.0) % [place] % (Auto) 10.7 H 15.0 H (2.0-8.0) % Eos % (Auto) 3.0 4.2 H (1.0-3.0) % Baso % (Auto) 0.5 1.3 H (0.0-1.0) % Neut # (Auto) 2.87 1.51 L (2.50-7.00) 10^3/uL Lymph # (Auto) 0.88 L 0.97 L (1.00-4.00) 10^3/uL [place] # (Auto) 0.47 0.47 (0.10-0.80) 10^3/uL Eos # (Auto) 0.13 0.13 (0.10-0.30) 10^3/uL Baso # (Auto) 0.02 0.04 (0.00-0.10) 10^3/uL Immature Gran # (Auto) 0.01 0.01 (0.00-0.50) 10^3/uL Sodium 143 (136-145) mmol/L Potassium 4.4 (3.3-5.3) mmol/L Chloride 108 (98-115) mmol/L Carbon Dioxide 27.4 (21.0-32.0) mmol/L Anion Gap 12.0 (5-15) mmol/L BUN 13 (6-25) mg/dL Creatinine 1.09 (0.51-1.17) mg/dL Est Cr Clr Drug Dosing TNP Estimated GFR (MDRD) > 60 mL/min Glucose 110 H (75 - 99) mg/dL Calcium 9.0 (8.7-10.3) mg/dL Total Bilirubin 1.4 H (0.2-1.0) mg/dL AST 27 (15-37) U/L ALT 26 (12-78) U/L Alkaline Phosphatase 89 (46-116) IU/L Total Protein 6.5 (6.4-8.2) g/dL Albumin 3.60 (3.00-4.80) g/dL 10/08/19 Range/Units 06:55 WBC (5.00-10.00) 10^3/uL RBC (4.50-6.00) 10^6/uL Hgb (13.0-17.0) g/dL Hct (40.0-52.0) % MCV (82.0-92.0) fL MCH (27.0-31.0) pg MCHC (32.0-36.0) g/dL RDW (11.5-14.5) % Plt Count (150-400) 10^3/uL MPV (7.4-10.4) fL Immature Gran % (Auto) (0.0-5.0) % Neut % (Auto) (50.0-70.0) % Lymph % (Auto) (20.0-40.0) % [place] % (Auto) (2.0-8.0) % Eos % (Auto) (1.0-3.0) % Baso % (Auto) (0.0-1.0) % Neut # (Auto) (2.50-7.00) 10^3/uL Lymph # (Auto) (1.00-4.00) 10^3/uL Howard # (Auto) (0.10-0.80) 10^3/uL Eos # (Auto) (0.10-0.30) 10^3/uL Baso # (Auto) (0.00-0.10) 10^3/uL Immature Gran # (Auto) (0.00-0.50) 10^3/uL Sodium 142 (136-145) mmol/L Potassium 3.9 (3.3-5.3) mmol/L Chloride 106 (98-115) mmol/L Carbon Dioxide 25.7 (21.0-32.0) mmol/L Anion Gap 14.2 (5-15) mmol/L BUN 13 (6-25) mg/dL Creatinine 0.95 (0.51-1.17) mg/dL Est Cr Clr Drug Dosing 70.44 Estimated GFR (MDRD) > 60 mL/min Glucose 118 H (75 - 99) mg/dL Calcium 8.8 (8.7-10.3) mg/dL Total Bilirubin 1.2 H (0.2-1.0) mg/dL AST 23 (15-37) U/L ALT 23 (12-78) U/L Alkaline Phosphatase 81 (46-116) IU/L Total Protein 5.9 L (6.4-8.2) g/dL Albumin 3.18 (3.00-4.80) g/dL Med Orders - Current: Current Medications Acetaminophen (Tylenol) 325 mg PO Q6H PRN PRN Reason: Pain Allopurinol (Zyloprim) 100 mg PO DAILY [facility] Last Admin: 10/08/19 08:49 Dose: 100 mg Aspirin (Halfprin) 81 mg PO DAILY [facility] Last Admin: 10/08/19 08:49 Dose: 81 mg Cyanocobalamin (Vitamin B12) 1,000 mcg PO DAILY [facility] Last Admin: 10/08/19 08:49 Dose: 1,000 mcg Diltiazem HCl (Cardizem Cd) 180 mg PO DAILY [facility] Last Admin: 10/08/19 08:49 Dose: 180 mg Furosemide (Lasix) 40 mg IVPUSH BIDDIURETIC [facility] Last Admin: 10/08/19 08:50 Dose: 40 mg Hydrochlorothiazide (Hydrochlorothiazide) 25 mg PO DAILY [facility] Last Admin: 10/08/19 08:49 Dose: 25 mg Hydroxyzine HCl (Atarax) 50 mg PO BEDTIME PRN PRN Reason: Other Vancomycin HCl 1.25 gm/ Sodium (Chloride) 250 mls @ 166.667 mls/hr IV Q12H [facility] Last Admin: 10/08/19 07:40 Dose: 166.667 mls/hr Sodium Chloride (Normal Saline) 50 mls @ 150 mls/hr IV ASDIRECTED [facility] Last Admin: 10/07/19 20:02 Dose: 150 mls/hr Lisinopril (Prinivil) 10 mg PO DAILY [facility] Last Admin: 10/08/19 08:49 Dose: 10 mg Pradaxa (Dabigatran) (150mg Cap - Ptom) 150 mg PO BID [facility] Last Admin: 10/08/19 08:50 Dose: 150 mg Rosuvastatin ( Crestor) 40mg Tab - Ptom 40 mg PO BEDTIME [facility] Last Admin: 10/07/19 21:16 Dose: 40 mg Pantoprazole Sodium (Protonix) 40 mg PO DAILY [facility] Last Admin: 10/08/19 08:49 Dose: 40 mg Senna/Docusate Sodium (Senna Plus) 1 tab PO DAILY PRN PRN Reason: Constipation Sodium Chloride (Saline Flush) 10 ml FLUSH Q8HR PRN PRN Reason: keep vein open Vancomycin HCl (Pharmacy To Dose - Vancomycin) 1 dose .XX ASDIRECTED [facility] Discontinued Medications Ceftriaxone Sodium (Rocephin) 1 gm IVPUSH Q24H [facility] Last Admin: 10/07/19 15:25 Dose: 1 gm - Exam General: Alert, Oriented, Cooperative, No Acute Distress Lungs: Clear to Auscultation, Normal Respiratory Effort Cardiovascular: No Murmurs, Irregular Rhythm GI/Abdominal Exam: Normal Bowel Sounds Extremities: Pedal Edema Skin: Other (There is some blistering of the skin on the shins bilaterally, R>L , erythema on the right, minimal warmth.) Sepsis Event Note - Evaluation Sepsis Screening Result: No Definite Risk - Focused Exam Vital Signs: Vital Signs Temp Pulse Pulse Resp BP BP Pulse Ox 10/08/19 08:49 83 139/84 10/08/19 06:43 98.6 F 84 18 121/83 100 10/08/19 03:00 97.2 F 90 18 120/84 100 10/07/19 23:00 97.6 F 94 18 129/81 94 L Date Exam was Performed: 10/08/19 Time Exam was Performed: 10:40 - Problem List Review Problem List Initiated/Reviewed/Updated: Yes - My Orders Last 24 Hours: My Active Orders 10/07/19 18:25 Isolation [COMM] Routine 10/07/19 18:30 Pharmacy to Dose - Vancomycin 1 dose .XX ASDIRECTED 10/07/19 19:00 Vancomycin 1.25 gm Sodium Chloride 0.9% [Normal Saline] 250 ml IV Q12H 10/08/19 21:00 rOPINIRole [Requip] 1 mg PO BEDTIME - Assessment Assessment:: Admission Diagnoses: Worsening peripheral edema, failure of outpatient lasix, with blistering of the skin and ulceration. Cellulitis RLE Secondary Diagnoses: Atrial fibrillation Hyperlipidemia HTN Gout Vit B12 deficiency Insomnia Acid Reflux RLS - Plan Plan:: Admission Diagnoses: Worsening peripheral edema, failure of outpatient lasix, with blistering of the skin and ulceration. Continue Lasix 40 mg IV BID Cellulitis RLE Vancomycin, pharmacy to dose Secondary Diagnoses: Atrial fibrillation Hyperlipidemia HTN Gout Vit B12 deficiency Insomnia Acid Reflux RLS Continue all home meds CODE STATUS: DNR/DNI Anticipate discharge to home in 1-2 days.
[2019-10-08] MEDS: Sodium Chloride 0.9% 50 ML IV SCH (19:27)
[2019-10-08] MEDS: ROSUVASTATIN 40 MG PO SCH (21:55)
[2019-10-08] MEDS: rOPINIRole 1 MG Tab PO SCH (21:57)
[2019-10-09] MEDS: Sodium Chloride 0.9% 10 ML Syringe FLUSH PRN ×3 (07:20→18:03)
[2019-10-09 07:23] LABS: ANION GAP 17.2 mmol/L (5-15)
[2019-10-09] MEDS: Cyanocobalamin (Vitamin B12) 500 MCG Tab PO SCH (08:07)
[2019-10-09] MEDS: PRADAXA 150 MG PO SCH ×2 (08:07→20:01)
[2019-10-09] MEDS: Allopurinol 100 MG Tab PO SCH (08:08)
[2019-10-09] MEDS: Pantoprazole 40 MG Tab.CR PO SCH (08:08)
[2019-10-09] MEDS: Aspirin 81 MG Tab.EC PO SCH (08:08)
[2019-10-09] MEDS: Diltiazem 180 MG Cap.CD PO SCH (09:08)
[2019-10-09] MEDS: Furosemide 40 MG/4 ML VIAL IVPUSH SCH ×2 (09:09→18:03)
--- NOTE | 2019-10-09 10:26 | PCM.PN ---
- General Info Date of Service: 10/09/19 Admission Dx/Problem (Free Text): Peripheral edema Cellulitis RLE - Review of Systems Systems Review Comment:: Tim is seen today on inpatient rounds. He was admitted 10/06 from clinic with worsening peripheral edema and cellulitis of the RLE. He has been on lasix 40 mg IV BID since admission and weight is down a total of 10 pounds, 2 since yesterday. I received a phone call around 0645 this morning indicating he was very dizzy when he got up to use the BR, HR was <100, BP was in the 60's systolic, recheck was similar. His HCTZ and lisinopril were held this AM. BP has improved, he is feeling "just fine now". He has no concerns today. - Patient Data Vitals - Most Recent: Last Vital Signs Temp 95.2 F L 10/09/19 06:30 Pulse 84 10/09/19 09:08 Resp 20 10/09/19 06:30 BP 114/77 10/09/19 09:08 Pulse Ox 94 L 10/09/19 06:30 Orthostatic Blood Pressure [ 107/74 Standing] Orthostatic Blood Pressure [ 109/77 Sitting] Orthostatic Blood Pressure [ 114/77 Supine] Weight - Most Recent: 250 lb I&O - Last 24 Hours: Intake & Output 10/08/19 10/09/19 10/09/19 22:59 06:59 14:59 Intake Total 800 400 Output Total 1950 475 Balance -1150 -75 Lab Results Last 24 Hours: Laboratory Results - last 24 hr 10/09/19 10/09/19 Range/Units 06:45 06:45 WBC 5.32 (5.00-10.00) 10^3/uL RBC 4.91 (4.50-6.00) 10^6/uL Hgb 15.2 (13.0-17.0) g/dL Hct 45.2 (40.0-52.0) % MCV 92.1 H (82.0-92.0) fL MCH 31.0 (27.0-31.0) pg MCHC 33.6 (32.0-36.0) g/dL RDW 13.2 (11.5-14.5) % Plt Count 226 (150-400) 10^3/uL MPV 9.4 (7.4-10.4) fL Immature Gran % (Auto) 0.2 (0.0-5.0) % Neut % (Auto) 50.3 (50.0-70.0) % Lymph % (Auto) 35.0 (20.0-40.0) % [place] % (Auto) 11.3 H (2.0-8.0) % Eos % (Auto) 2.8 (1.0-3.0) % Baso % (Auto) 0.4 (0.0-1.0) % Neut # (Auto) 2.68 (2.50-7.00) 10^3/uL Lymph # (Auto) 1.86 (1.00-4.00) 10^3/uL [place] # (Auto) 0.60 (0.10-0.80) 10^3/uL Eos # (Auto) 0.15 (0.10-0.30) 10^3/uL Baso # (Auto) 0.02 (0.00-0.10) 10^3/uL Immature Gran # (Auto) 0.01 (0.00-0.50) 10^3/uL Sodium 145 (136-145) mmol/L Potassium 3.8 (3.3-5.3) mmol/L Chloride 102 (98-115) mmol/L Carbon Dioxide 29.6 (21.0-32.0) mmol/L Anion Gap 17.2 H (5-15) mmol/L BUN 18 (6-25) mg/dL Creatinine 1.19 H (0.51-1.17) mg/dL Est Cr Clr Drug Dosing 56.23 mL/min Estimated GFR (MDRD) 60 mL/min Glucose 126 H (75 - 99) mg/dL Calcium 8.7 (8.7-10.3) mg/dL Total Bilirubin 1.5 H (0.2-1.0) mg/dL AST 20 (15-37) U/L ALT 22 (12-78) U/L Alkaline Phosphatase 79 (46-116) IU/L Total Protein 5.9 L (6.4-8.2) g/dL Albumin 3.24 (3.00-4.80) g/dL Med Orders - Current: Current Medications Acetaminophen (Tylenol) 325 mg PO Q6H PRN PRN Reason: Pain Allopurinol (Zyloprim) 100 mg PO DAILY [facility] Last Admin: 10/09/19 08:08 Dose: 100 mg Aspirin (Halfprin) 81 mg PO DAILY [facility] Last Admin: 10/09/19 08:08 Dose: 81 mg Cyanocobalamin (Vitamin B12) 1,000 mcg PO DAILY [facility] Last Admin: 10/09/19 08:07 Dose: 1,000 mcg Diltiazem HCl (Cardizem Cd) 180 mg PO DAILY [facility] Last Admin: 10/09/19 09:08 Dose: 180 mg Furosemide (Lasix) 40 mg IVPUSH BIDDIURETIC [facility] Last Admin: 10/09/19 09:09 Dose: 40 mg Hydrochlorothiazide (Hydrochlorothiazide) 25 mg PO DAILY [facility] Last Admin: 10/08/19 08:49 Dose: 25 mg Hydroxyzine HCl (Atarax) 50 mg PO BEDTIME PRN PRN Reason: Other Vancomycin HCl 1.25 gm/ Sodium (Chloride) 250 mls @ 166.667 mls/hr IV Q12H [facility] Last Admin: 10/09/19 07:20 Dose: 166.667 mls/hr Sodium Chloride (Normal Saline) 50 mls @ 150 mls/hr IV ASDIRECTED [facility] Last Admin: 10/08/19 19:27 Dose: 150 mls/hr Lisinopril (Prinivil) 10 mg PO DAILY [facility] Last Admin: 10/08/19 08:49 Dose: 10 mg Pradaxa (Dabigatran) (150mg Cap - Ptom) 150 mg PO BID [facility] Last Admin: 10/09/19 08:07 Dose: 150 mg Rosuvastatin ( Crestor) 40mg Tab - Ptom 40 mg PO BEDTIME [facility] Last Admin: 10/08/19 21:55 Dose: 40 mg Pantoprazole Sodium (Protonix) 40 mg PO DAILY [facility] Last Admin: 10/09/19 08:08 Dose: 40 mg Ropinirole HCl (Requip) 1 mg PO BEDTIME [facility] Last Admin: 10/08/19 21:57 Dose: 1 mg Senna/Docusate Sodium (Senna Plus) 1 tab PO DAILY PRN PRN Reason: Constipation Sodium Chloride (Saline Flush) 10 ml FLUSH Q8HR PRN PRN Reason: keep vein open Last Admin: 10/09/19 09:09 Dose: 10 ml Vancomycin HCl (Pharmacy To Dose - Vancomycin) 1 dose .XX ASDIRECTED [facility] Discontinued Medications Ceftriaxone Sodium (Rocephin) 1 gm IVPUSH Q24H [facility] Last Admin: 10/07/19 15:25 Dose: 1 gm - Exam General: Alert, Oriented, Cooperative, No Acute Distress Lungs: Clear to Auscultation, Normal Respiratory Effort Cardiovascular: Irregular Rhythm GI/Abdominal Exam: Normal Bowel Sounds, Soft, Non-Tender, No Organomegaly Extremities: Pedal Edema (Improved pedal edema from yesterday.) Skin: Other (He has persistent erythema of the RLE that is improved from yesterday. ) Sepsis Event Note - Evaluation Sepsis Screening Result: No Definite Risk - Focused Exam Vital Signs: Vital Signs Temp Pulse Pulse Resp BP BP BP 10/09/19 09:08 84 114/77 10/09/19 06:54 71 67/53 L 10/09/19 06:30 95.2 F L 66 20 75/55 L 10/09/19 03:00 97.4 F 85 20 98/59 L 10/08/19 23:00 96.9 F 96 20 116/79 Pulse Ox 10/09/19 09:08 10/09/19 06:54 10/09/19 06:30 94 L 10/09/19 03:00 98 10/08/19 23:00 98 Date Exam was Performed: 10/09/19 Time Exam was Performed: 10:22 - Problem List Review Problem List Initiated/Reviewed/Updated: Yes - My Orders Last 24 Hours: My Active Orders 10/08/19 10:47 Resuscitation Status Routine 10/08/19 21:00 rOPINIRole [Requip] 1 mg PO BEDTIME - Assessment Assessment:: Admission Diagnoses: Worsening peripheral edema, failure of outpatient lasix, with blistering of the skin and ulceration. Cellulitis RLE Secondary Diagnoses: Atrial fibrillation Hyperlipidemia HTN Gout Vit B12 deficiency Insomnia Acid Reflux RLS - Plan Plan:: Admission Diagnoses: Worsening peripheral edema, failure of outpatient lasix, with blistering of the skin and ulceration. Continue Lasix 40 mg IV BID Cellulitis RLE Vancomycin, pharmacy to dose Hypotension Lisinopril and HCTZ held this AM (10/08) Hold discharge today (10/08) due to hypotension, will reassess in AM Secondary Diagnoses: Atrial fibrillation Hyperlipidemia HTN Gout Vit B12 deficiency Insomnia Acid Reflux RLS Continue all home meds CODE STATUS: DNR/DNI Anticipate discharge to home in 1-2 days.
[2019-10-09] MEDS: rOPINIRole 1 MG Tab PO SCH (20:02)
[2019-10-09] MEDS: ROSUVASTATIN 40 MG PO SCH (20:02)
[2019-10-10 06:34] VITALS: PULSE 81
[2019-10-10 08:05] LABS: CHLORIDE,CL 102 mmol/L (98-115); SODIUM,NA 140 mmol/L (136-145)
[2019-10-10] MEDS: Sodium Chloride 0.9% 50 ML IV SCH (08:34)
[2019-10-10] MEDS: Sodium Chloride 0.9% 10 ML Syringe FLUSH PRN (08:35)
[2019-10-10] MEDS: Diltiazem 180 MG Cap.CD PO SCH (09:37)
[2019-10-10] MEDS: Lisinopril 20 MG Tab PO SCH (09:38)
[2019-10-10] MEDS: Allopurinol 100 MG Tab PO SCH (09:38)
[2019-10-10] MEDS: Aspirin 81 MG Tab.EC PO SCH (09:38)
[2019-10-10] MEDS: Pantoprazole 40 MG Tab.CR PO SCH (09:38)
[2019-10-10] MEDS: Cyanocobalamin (Vitamin B12) 500 MCG Tab PO SCH (09:38)
[2019-10-10 09:39] VITALS: BP 121/81
[2019-10-10] MEDS: Furosemide 40 MG/4 ML VIAL IVPUSH SCH (09:39)
[2019-10-10] MEDS: Hydrochlorothiazide 25 MG Tab PO SCH (09:39)
[2019-10-10] MEDS: PRADAXA 150 MG PO SCH (09:40)
--- NOTE | 2019-10-10 10:03 | PCM.DCSUM1 ---
Discharge Summary - Hospital Course Free Text/Narrative:: Admission Date: 10/07/2019 Discharge Date: 10/10/2019 Admission Diagnoses: Worsening peripheral edema, bilateral, with skin blistering, failure of outpatient home Lasix dose Cellulitis, RLE Discharge Diagnoses: Worsening peripheral edema, bilateral, with skin blistering, responded will to Lasix 40 mg IV BID x 3 days with 11 lb weight loss Cellulitis, RLE, improving with vancomycin, has hx of MRSA, will discharge on outpatient Bactrim DS 1 tab PO BID x 10 days, sent through his [facility] Data chart Secondary Diagnoses: Atrial fibrillation Hyperlipidemia Hypertension Gout Vit B12 deficiency Insomnia Acid Reflux RLS CODE STATUS: DNR/DNI New meds at discharge: Bactrim DS 1 tab PO BID x 10 days Tim is a very pleasant 73 yo M who was admitted on 10/06 from the clinic with worsening peripheral edema, not responding to home lasix dose of 20 mg PO BID, with blistering bilaterally, R>L and cellulitis of the RLE. He as admitted for IV lasix as well as IV antibiotics. Previous culture results grew MRSA and so he was switched from ceftriaxone to vancomycin (pharm to dose). He stated the swelling had been getting progressively worse over the past 2 weeks with the erythema starting one week prior to admission. He has a small ulceration on the right lower extremity approximately the size of a nickel. No drainage. He was started on Lasix 40 mg IV BID and did very well. He diuresed 11 lbs and his legs are markedly improved in both swelling and erythema. He did have hypotension in the AM of 10/08 and his lisinopril and HCTZ were held, but his BP improved and he received all of his AM meds this morning. He has been up walking around, denies any dizziness or chest pain. He will be discharged to home on his outpatient dose of lasix 20 mg PO BID and he is instructed to call the clinic if he notices an increase in size of his legs so that we can try to adjust his outpatient dose of lasix to prevent hospital admission. Follow-up in the clinic in 1 week. Diagnosis: Stroke: No Modified Barco Scale: No Symptoms at All Modified Sallie Scale Score: 0 - Discharge Data Discharge Date: 10/10/19 Discharge Disposition: Home, Self-Care 01 Condition: Good - Referral to Home Health Primary Care Physician: Joyce Esquivel PA-C - Patient Instructions Diet: Usual Diet as Tolerated Activity: Rest and Relax Today Notify Provider of: Swelling and Redness, Drainage - Discharge Plan *PRESCRIPTION DRUG MONITORING PROGRAM REVIEWED*: Not Applicable *COPY OF PRESCRIPTION DRUG MONITORING REPORT IN PATIENT SMILEY: Not Applicable Home Medications: Home Meds Dabigatran [Pradaxa] 150 mg PO DAILY 11/01/13 [History] Rosuvastatin [Crestor] 40 mg PO BEDTIME 11/01/13 [History] Aspirin [Adult Low Dose Aspirin EC] 81 mg PO DAILY 10/13/15 [History] Pantoprazole Sodium 40 mg PO DAILY 10/13/15 [History] Acetaminophen [Tylenol] 325 mg PO Q6H PRN 04/23/18 [History] allopurinoL [Zyloprim] 100 mg PO DAILY 04/23/18 [History] hydrOXYzine HCL [hydrOXYzine] 50 mg PO BEDTIME PRN 04/23/18 [History] Furosemide 20 mg PO BID@0800,1200 12/23/18 [History] Sennosides/Docusate Sodium [Senna Plus 8.6-50 mg Tablet] 1 each PO DAILY PRN 04/06 [History] dilTIAZem HCL [Diltiazem 24Hr ER] 180 mg PO BEDTIME 06/28/19 [History] hydroCHLOROthiazide [Hydrochlorothiazide] 25 mg PO DAILY 06/28/19 [History] Cyanocobalamin (Vitamin B-12) [Vitamin B-12] 1,000 unit PO DAILY 08/04/19 [ History] rOPINIRole [Requip] 1 mg PO BEDTIME 10/07/19 [History] lisinopriL [Prinivil] 10 mg PO DAILY tablet 10/10/19 [Rx] - Discharge Summary/Plan Comment DC Time >30 min.: No - General Info Date of Service: 10/10/19 Admission Dx/Problem (Free Text: Peripheral edema Cellulitis RLE - Patient Data Vitals - Most Recent: Last Vital Signs Temp 97.3 F 10/10/19 06:33 Pulse 81 10/10/19 09:37 Resp 20 10/10/19 06:33 BP 121/81 10/10/19 09:38 Pulse Ox 97 10/10/19 06:33 Orthostatic Blood Pressure [ 107/74 Standing] Orthostatic Blood Pressure [ 109/77 Sitting] Orthostatic Blood Pressure [ 114/77 Supine] Weight - Most Recent: 249 lb I&O - Last 24 hours: Intake & Output 10/09/19 10/10/19 10/10/19 22:59 06:59 14:59 Intake Total 700 200 Output Total 1150 350 Balance -450 -150 Lab Results - Last 24 hrs: Laboratory Results - last 24 hr 10/09/19 10/10/19 10/10/19 Range/Units 18:00 07:15 07:15 WBC 4.51 L (5.00-10.00) 10^3/uL RBC 5.03 (4.50-6.00) 10^6/uL Hgb 15.7 (13.0-17.0) g/dL Hct 45.7 (40.0-52.0) % MCV 90.9 (82.0-92.0) fL MCH 31.2 H (27.0-31.0) pg MCHC 34.4 (32.0-36.0) g/dL RDW 13.0 (11.5-14.5) % Plt Count 207 (150-400) 10^3/uL MPV 9.3 (7.4-10.4) fL Immature Gran % (Auto) 0.0 (0.0-5.0) % Neut % (Auto) 56.7 (50.0-70.0) % Lymph % (Auto) 25.5 (20.0-40.0) % [place] % (Auto) 14.2 H (2.0-8.0) % Eos % (Auto) 2.9 (1.0-3.0) % Baso % (Auto) 0.7 (0.0-1.0) % Neut # (Auto) 2.56 (2.50-7.00) 10^3/uL Lymph # (Auto) 1.15 (1.00-4.00) 10^3/uL [place] # (Auto) 0.64 (0.10-0.80) 10^3/uL Eos # (Auto) 0.13 (0.10-0.30) 10^3/uL Baso # (Auto) 0.03 (0.00-0.10) 10^3/uL Immature Gran # (Auto) 0.00 (0.00-0.50) 10^3/uL Sodium 140 (136-145) mmol/L Potassium 3.5 (3.3-5.3) mmol/L Chloride 102 (98-115) mmol/L Carbon Dioxide 29.5 (21.0-32.0) mmol/L Anion Gap 12.0 (5-15) mmol/L BUN 21 (6-25) mg/dL Creatinine 1.10 (0.51-1.17) mg/dL Est Cr Clr Drug Dosing 60.83 mL/min Estimated GFR (MDRD) > 60 mL/min Glucose 113 H (75 - 99) mg/dL Calcium 8.8 (8.7-10.3) mg/dL Total Bilirubin 1.2 H (0.2-1.0) mg/dL AST 23 (15-37) U/L ALT 19 (12-78) U/L Alkaline Phosphatase 78 (46-116) IU/L Total Protein 6.2 L (6.4-8.2) g/dL Albumin 3.36 (3.00-4.80) g/dL Vancomycin Trough 17.1 (10-20) ug/mL Med Orders - Current: Current Medications Acetaminophen (Tylenol) 325 mg PO Q6H PRN PRN Reason: Pain Allopurinol (Zyloprim) 100 mg PO DAILY [facility] Last Admin: 10/10/19 09:38 Dose: 100 mg Aspirin (Halfprin) 81 mg PO DAILY [facility] Last Admin: 10/10/19 09:38 Dose: 81 mg Cyanocobalamin (Vitamin B12) 1,000 mcg PO DAILY [facility] Last Admin: 10/10/19 09:38 Dose: 1,000 mcg Diltiazem HCl (Cardizem Cd) 180 mg PO DAILY [facility] Last Admin: 10/10/19 09:37 Dose: 180 mg Furosemide (Lasix) 40 mg IVPUSH BIDDIURETIC [facility] Last Admin: 10/10/19 09:39 Dose: 40 mg Hydrochlorothiazide (Hydrochlorothiazide) 25 mg PO DAILY [facility] Last Admin: 10/10/19 09:39 Dose: 25 mg Hydroxyzine HCl (Atarax) 50 mg PO BEDTIME PRN PRN Reason: Other Sodium Chloride (Normal Saline) 50 mls @ 150 mls/hr IV ASDIRECTED [facility] Last Admin: 10/10/19 08:34 Dose: 150 mls/hr Vancomycin HCl 1.25 gm/ Sodium (Chloride) 250 mls @ 166.667 mls/hr IV Q24H [facility] Last Admin: 10/10/19 08:29 Dose: 166.667 mls/hr Lisinopril (Prinivil) 10 mg PO DAILY [facility] Last Admin: 10/10/19 09:38 Dose: 10 mg Pradaxa (Dabigatran) (150mg Cap - Ptom) 150 mg PO BID [facility] Last Admin: 10/10/19 09:40 Dose: 150 mg Rosuvastatin ( Crestor) 40mg Tab - Ptom 40 mg PO BEDTIME [facility] Last Admin: 10/09/19 20:02 Dose: 40 mg Pantoprazole Sodium (Protonix) 40 mg PO DAILY [facility] Last Admin: 10/10/19 09:38 Dose: 40 mg Ropinirole HCl (Requip) 1 mg PO BEDTIME [facility] Last Admin: 10/09/19 20:02 Dose: 1 mg Senna/Docusate Sodium (Senna Plus) 1 tab PO DAILY PRN PRN Reason: Constipation Sodium Chloride (Saline Flush) 10 ml FLUSH Q8HR PRN PRN Reason: keep vein open Last Admin: 10/10/19 08:35 Dose: 10 ml Vancomycin HCl (Pharmacy To Dose - Vancomycin) 1 dose .XX ASDIRECTED [facility] Discontinued Medications Ceftriaxone Sodium (Rocephin) 1 gm IVPUSH Q24H [facility] Last Admin: 10/07/19 15:25 Dose: 1 gm Vancomycin HCl 1.25 gm/ Sodium (Chloride) 250 mls @ 166.667 mls/hr IV Q12H [facility] Last Admin: 10/09/19 07:20 Dose: 166.667 mls/hr Vancomycin HCl 1.25 gm/ Sodium (Chloride) 250 mls @ 166.667 mls/hr IV Q12H [facility] Vancomycin HCl 1.25 gm/ Sodium (Chloride) 250 mls @ 166.667 mls/hr IV Q24H [facility] Last Admin: 10/09/19 19:31 Dose: Not Given - Exam General: Reports: Alert, Oriented, Cooperative, No Acute Distress Lungs: Reports: Clear to Auscultation, Normal Respiratory Effort GI/Abdominal Exam: Normal Bowel Sounds Extremities: Pedal Edema (Trace pedal edema bilatearlly, markedly improved from admission.) Wound/Incisions: Reports: Healing Well, Erythema Improving, Other (There is some blistering of the skin bilaterally, improving.)
== END 2019-10-10 10:25 | disposition home or self-care (01) | DRG 603 ==
LOC: KA.MS 13:52
DX: L03.115 Cellulitis of right lower limb (principal); L97.919 Non-pressure chronic ulcer of unspecified part of right lower leg with unspecified severity; I48.91 Unspecified atrial fibrillation; E78.5 Hyperlipidemia, unspecified; I10 Essential (primary) hypertension; Z66 Do not resuscitate; M10.9 Gout, unspecified; E53.8 Deficiency of other specified B group vitamins; G47.00 Insomnia, unspecified; K21.9 Gastro-esophageal reflux disease without esophagitis; G25.81 Restless legs syndrome; Z79.82 Long term (current) use of aspirin; Z79.899 Other long term (current) drug therapy; F41.9 Anxiety disorder, unspecified; E78.00 Pure hypercholesterolemia, unspecified; K59.00 Constipation, unspecified; I95.9 Hypotension, unspecified
CPT/HCPCS: 36415; 80053; 80202; 85025; 87070; 87205; A9270-GY; J0696; J1940; J3370; J7050

== ENCOUNTER 2019-12-02 09:30 | Inpatient (IN) | payer MEDICARE, OTHER ==
[2019-12-02] MEDS ORDERED: Metolazone 2.5 MG Tab PO ONE (10:07)
[2019-12-02] MEDS ORDERED: Piperacillin/Tazobactam/Dext 3.375 GM in Premix Bag 1 BAG IV SCH (10:15)
[2019-12-02] MEDS: Sodium Chloride 0.9% 10 ML Syringe FLUSH PRN ×3 (11:13→23:00)
[2019-12-02] MEDS: Furosemide 40 MG/4 ML VIAL IVPUSH SCH ×2 (11:16→20:56)
[2019-12-02] MEDS: Sodium Chloride 0.9% 250 ML IV SCH (11:53)
[2019-12-02 12:07] LABS: ANION GAP 13.5 mmol/L (5-15); CHLORIDE,CL 105 mmol/L (98-115); SODIUM,NA 143 mmol/L (136-145)
[2019-12-02] MEDS ORDERED: hydrOXYzine HCl 25 MG Tab PO PRN (14:34)
[2019-12-02] MEDS ORDERED: Acetaminophen 325 MG Tab PO PRN (14:41)
[2019-12-02] MEDS: Piperacillin/Tazobactam/Dext 3.375 GM in Premix Bag 1 BAG IV SCH ×2 (17:13→23:06)
[2019-12-02] MEDS: Diltiazem 180 MG Cap.CD PO SCH (20:55)
[2019-12-02] MEDS: Rosuvastatin 10 MG Tab PO SCH (20:56)
[2019-12-02] MEDS: rOPINIRole 1 MG Tab PO SCH (20:56)
[2019-12-02] MEDS: PRADAXA 150 MG PO SCH (20:58)
[2019-12-03] MEDS: Piperacillin/Tazobactam/Dext 3.375 GM in Premix Bag 1 BAG IV SCH ×4 (05:38→23:56)
[2019-12-03] MEDS: Furosemide 40 MG/4 ML VIAL IVPUSH SCH ×2 (09:30→10:30)
[2019-12-03] MEDS: Allopurinol 100 MG Tab PO SCH (09:42)
[2019-12-03] MEDS: Hydrochlorothiazide 25 MG Tab PO SCH (09:42)
[2019-12-03] MEDS: Aspirin 81 MG Tab.EC PO SCH (09:42)
[2019-12-03] MEDS: Pantoprazole 40 MG Tab.CR PO SCH (09:42)
[2019-12-03] MEDS: Cyanocobalamin (Vitamin B12) 500 MCG Tab PO SCH (09:42)
[2019-12-03] MEDS: PRADAXA 150 MG PO SCH ×2 (10:30→21:05)
[2019-12-03] MEDS: Sodium Chloride 0.9% 250 ML IV SCH (13:43)
[2019-12-03] MEDS: Sodium Chloride 0.9% 10 ML Syringe FLUSH PRN ×2 (16:32→18:52)
[2019-12-03] MEDS ORDERED: Furosemide 40 MG/4 ML VIAL IVPUSH SCH (17:00)
[2019-12-03] MEDS: Diltiazem 180 MG Cap.CD PO SCH (21:02)
[2019-12-03] MEDS: rOPINIRole 1 MG Tab PO SCH (21:03)
[2019-12-03] MEDS: Rosuvastatin 10 MG Tab PO SCH (21:03)
[2019-12-04] MEDS: Sodium Chloride 0.9% 10 ML Syringe FLUSH PRN (05:13)
[2019-12-04] MEDS: Piperacillin/Tazobactam/Dext 3.375 GM in Premix Bag 1 BAG IV SCH ×4 (05:14→23:17)
[2019-12-04 08:02] LABS: ANION GAP 16.3 mmol/L (5-15)
[2019-12-04] MEDS ORDERED: Furosemide 40 MG/4 ML VIAL IVPUSH SCH ×3 (09:00→17:00)
[2019-12-04] MEDS: Aspirin 81 MG Tab.EC PO SCH (09:34)
[2019-12-04] MEDS: PRADAXA 150 MG PO SCH ×2 (09:34→20:32)
[2019-12-04] MEDS: Hydrochlorothiazide 25 MG Tab PO SCH (09:34)
[2019-12-04] MEDS: Pantoprazole 40 MG Tab.CR PO SCH (09:35)
[2019-12-04] MEDS: Cyanocobalamin (Vitamin B12) 500 MCG Tab PO SCH (09:35)
[2019-12-04] MEDS: Allopurinol 100 MG Tab PO SCH (09:35)
[2019-12-04] MEDS: Furosemide 40 MG/4 ML VIAL IVPUSH SCH ×2 (11:49→12:16)
[2019-12-04] MEDS: Potassium Chloride 20 MEQ Tab.ER PO SCH (12:13)
--- NOTE | 2019-12-04 14:17 | PCM.PN ---
- General Info Date of Service: 12/04/19 Admission Dx/Problem (Free Text): Peripheral edema with blistering and weeping, failed outpatient oral furosemide therapy. - Review of Systems Systems Review Comment:: Tim is seen today on inpatient rounds. He was admitted on 12/01 after a clinic appointment for bilateral LE edema that was not responding to oral furosemide therapy at 40 mg PO BID. He had blistering as well as some mild erythema and on the LLE he had two open blisters that were draining serosanguinous fluid. Upon admission he was started on furosemide IV 80 mg BID and he diuresed 12 pounds in 24 hours. On 12/02 his furosemide was decreased to 80 IV q AM and 40 IV q afternoon. Over night he diuresed another 2 pounds. He was also started on antibiotics for presumed early cellulitis on 12/01 with vancomycin and zosyn as he has a hx of MRSA. Currently cultures are growing bacillus not anthracis as well as normal skin macho. He states overall he feels quite well, although he has prerenal azotemia today due to diuretic use. He was hypotensive on 12/02 and that has resolved. He was also dizzy with his hypotension and the dizziness has resolved. - Patient Data Vitals - Most Recent: Last Vital Signs Temp 97.2 F 12/04/19 11:00 Pulse 76 12/04/19 11:00 Resp 18 12/04/19 11:00 BP 125/80 12/04/19 11:00 Pulse Ox 97 12/04/19 11:00 Weight - Most Recent: 250 lb 11.2 oz I&O - Last 24 Hours: Intake & Output 12/03/19 12/04/19 12/04/19 22:59 06:59 14:59 Intake Total 1510 440 600 Output Total 2200 1000 Balance -690 440 -400 Lab Results Last 24 Hours: Laboratory Results - last 24 hr 12/04/19 12/04/19 12/04/19 Range/Units 07:30 07:30 12:42 WBC 4.44 L (5.00-10.00) 10^3/uL RBC 5.36 (4.50-6.00) 10^6/uL Hgb 16.6 D (13.0-17.0) g/dL Hct 47.8 (40.0-52.0) % MCV 89.2 D (82.0-92.0) fL MCH 31.0 (27.0-31.0) pg MCHC 34.7 (32.0-36.0) g/dL RDW 12.3 (11.5-14.5) % Plt Count 201 (150-400) 10^3/uL MPV 8.8 (7.4-10.4) fL Immature Gran % (Auto) 0.2 (0.0-5.0) % Neut % (Auto) 61.2 (50.0-70.0) % Lymph % (Auto) 21.2 (20.0-40.0) % [place] % (Auto) 13.5 H (2.0-8.0) % Eos % (Auto) 3.4 H (1.0-3.0) % Baso % (Auto) 0.5 (0.0-1.0) % Neut # (Auto) 2.72 (2.50-7.00) 10^3/uL Lymph # (Auto) 0.94 L (1.00-4.00) 10^3/uL [place] # (Auto) 0.60 (0.10-0.80) 10^3/uL Eos # (Auto) 0.15 (0.10-0.30) 10^3/uL Baso # (Auto) 0.02 (0.00-0.10) 10^3/uL Immature Gran # (Auto) 0.01 (0.00-0.50) 10^3/uL Sodium 144 (136-145) mmol/L Potassium 3.1 L (3.3-5.3) mmol/L Chloride 97 L (98-115) mmol/L Carbon Dioxide 33.8 H (21.0-32.0) mmol/L Anion Gap 16.3 H (5-15) mmol/L BUN 21 (6-25) mg/dL Creatinine 1.39 H (0.51-1.17) mg/dL Est Cr Clr Drug Dosing 47.41 mL/min Estimated GFR (MDRD) 50 mL/min Glucose 112 H (75 - 99) mg/dL Calcium 8.7 (8.7-10.3) mg/dL Total Bilirubin 1.9 H (0.2-1.0) mg/dL AST 19 (15-37) U/L ALT 20 (12-78) U/L Alkaline Phosphatase 76 (46-116) IU/L Total Protein 6.5 (6.4-8.2) g/dL Albumin 3.45 (3.00-4.80) g/dL Vancomycin Trough 22.4 H* (10-20) ug/mL Juan Carlos Results Last 24 Hours: Microbiology 12/02/19 10:16 Miscellaneous Reference Culture - Preliminary Wound - Leg, Right Gram Stain - Final 12/02/19 10:15 Miscellaneous Reference Culture - Preliminary Wound - Leg, Left Bacillus Species Not Anthracis Iso Consist W Cutaneous Macho Gram Stain - Final 12/02/19 12:45 Urine Culture - Final Urine, Clean Catch MIXED MACHO SUGGESTIVE OF CONTAMINATION. Med Orders - Current: Current Medications Acetaminophen (Tylenol) 650 mg PO Q6H PRN PRN Reason: PAIN Allopurinol (Zyloprim) 100 mg PO DAILY [facility] Last Admin: 12/04/19 09:35 Dose: 100 mg Documented by: Aspirin (Halfprin) 81 mg PO DAILY [facility] Last Admin: 12/04/19 09:34 Dose: 81 mg Documented by: Cyanocobalamin (Vitamin B12) 1,000 mcg PO DAILY [facility] Last Admin: 12/04/19 09:35 Dose: 1,000 mcg Documented by: Diltiazem HCl (Cardizem Cd) 180 mg PO BEDTIME [facility] Last Admin: 12/03/19 21:02 Dose: 180 mg Documented by: Furosemide (Lasix) 40 mg IVPUSH DAILY@1700 [facility] Furosemide (Lasix) 40 mg IVPUSH DAILY [facility] Last Admin: 12/04/19 12:16 Dose: 40 mg Documented by: Hydrochlorothiazide (Hydrochlorothiazide) 25 mg PO DAILY [facility] Last Admin: 12/04/19 09:34 Dose: 25 mg Documented by: Hydroxyzine HCl (Atarax) 50 mg PO BEDTIME PRN PRN Reason: Other Sodium Chloride (Normal Saline) 250 mls @ 100 mls/hr IV DAILY@1015 [facility] Last Admin: 12/03/19 13:43 Dose: 100 mls/hr Documented by: Piperacillin/Tazobactam/ (Dextrose 3.375 gm/ Premix) 50 mls @ 100 mls/hr IV Q6H [facility] Last Admin: 12/04/19 12:55 Dose: 100 mls/hr Documented by: Ptom Pradaxa (150mg Capsule) 150 mg PO BID [facility] Last Admin: 12/04/19 09:34 Dose: 150 mg Documented by: Pantoprazole Sodium (Protonix) 40 mg PO DAILY [facility] Last Admin: 12/04/19 09:35 Dose: 40 mg Documented by: Potassium Chloride (Klor-Con M20) 40 meq PO DAILY [facility] Last Admin: 12/04/19 12:13 Dose: 40 meq Documented by: Ropinirole HCl (Requip) 1 mg PO BEDTIME [facility] Last Admin: 12/03/19 21:03 Dose: 1 mg Documented by: Rosuvastatin Calcium (Crestor) 40 mg PO BEDTIME [facility] Last Admin: 12/03/19 21:03 Dose: 40 mg Documented by: Sodium Chloride (Saline Flush) 10 ml FLUSH Q8HR PRN PRN Reason: keep vein open Last Admin: 12/04/19 05:13 Dose: 10 ml Documented by: Discontinued Medications Furosemide (Lasix) 80 mg IVPUSH BID [facility] Last Admin: 12/03/19 09:30 Dose: Not Given Documented by: Furosemide (Lasix) 40 mg IVPUSH DAILY [facility] Furosemide (Lasix) 80 mg IVPUSH DAILY [facility] Last Admin: 12/04/19 11:49 Dose: Not Given Documented by: Furosemide (Lasix) 40 mg IVPUSH DAILY [facility] Last Admin: 12/03/19 16:34 Dose: 40 mg Documented by: Piperacillin/Tazobactam/ (Dextrose 3.375 gm/ Premix) 50 mls @ 100 mls/hr IV Q6H [facility] Last Admin: 12/02/19 11:57 Dose: 100 mls/hr Documented by: Vancomycin HCl 1.5 gm/ Sodium (Chloride) 250 mls @ 100 mls/hr IV Q12H [facility] Last Admin: 12/04/19 13:33 Dose: Not Given Documented by: Metolazone (Zaroxolyn) 2.5 mg PO ONETIME ONE Stop: 12/02/19 10:08 Last Admin: 12/02/19 11:14 Dose: 2.5 mg Documented by: Vancomycin HCl (Pharmacy To Dose - Vancomycin) 1 dose .XX ASDIRECTED [facility] - Exam General: Alert, Oriented, Cooperative, No Acute Distress Neck: Supple Lungs: Clear to Auscultation, Normal Respiratory Effort Cardiovascular: No Murmurs, Irregular Rhythm GI/Abdominal Exam: Normal Bowel Sounds Extremities: Pedal Edema (Marked improvement of pedal edema, although still present.) Skin: Other (Erythema has improved, blisters on LLE have scabbed over.) Sepsis Event Note - Evaluation Sepsis Screening Result: No Definite Risk - Focused Exam Vital Signs: Vital Signs Temp Pulse Resp BP BP Pulse Ox 12/04/19 11:00 97.2 F 76 18 125/80 97 12/04/19 07:00 96.9 F 89 18 101/77 97 12/04/19 03:00 96.3 F L 82 16 95/70 96 Date Exam was Performed: 12/04/19 Time Exam was Performed: 14:08 - Problem List Review Problem List Initiated/Reviewed/Updated: Yes - My Orders Last 24 Hours: My Active Orders 12/04/19 11:45 Furosemide [Lasix] 40 mg IVPUSH DAILY Potassium Chloride [Klor-Con M20] 40 meq PO DAILY 12/05/19 05:11 BMP [BASIC METABOLIC PANEL,BMP] [CHEM] AM CBC WITH AUTO DIFF [HEME] AM - Assessment Assessment:: Acute Hospital Problems: Peripheral edema with blistering and weeping, failure of outpatient therapy Early cellulitis Diuretic induced prerenal azotemia Hypokalemia Secondary problems: Atrial fibrillation Gout HTN Acid Reflux RLS Hyperlipidemia Vit B12 deficiency - Plan Plan:: Acute Hospital Problems: Peripheral edema with blistering and weeping, failure of outpatient therapy. Decrease furosemide to 40 mg IV BID Daily Weights Outpatient referral has been placed to the [facility] in [place] Early cellulitis Bacillus not anthracis growing with normal skin macho. Will d/c vancomycin, continue zosyn Diuretic induced prerenal azotemia Decreased furosemide as noted above, BMP in AM Hypokalemia Replace with 40 meQ KCl today and continue daily, BMP in AM Secondary problems: Atrial fibrillation Continue Pradaxa Continue Diltiazem Gout Continue allopurinol HTN Continue HCTZ Acid Reflux Continue pantoprazole RLS Continue Ropinirole Hyperlipidemia Continue atorvastatin Vit B12 deficiency Continue cyanocobalamin 1,000 mcg PO daily in additional to outpatient monthly injections CODE STATUS: DNR/DNI DVT Prophylaxis: Ambulation as well as outpatient Pradaxa Anticipate D/C to home in AM on 12/05/2019
[2019-12-04] MEDS: Sodium Chloride 0.9% 250 ML IV SCH (18:40)
[2019-12-04] MEDS: Rosuvastatin 10 MG Tab PO SCH (20:30)
[2019-12-04] MEDS: Diltiazem 180 MG Cap.CD PO SCH (20:30)
[2019-12-04] MEDS: rOPINIRole 1 MG Tab PO SCH (20:30)
[2019-12-05] MEDS: Sodium Chloride 0.9% 250 ML IV SCH (05:03)
[2019-12-05] MEDS: Piperacillin/Tazobactam/Dext 3.375 GM in Premix Bag 1 BAG IV SCH (05:03)
[2019-12-05 06:58] VITALS: BP 95/74; PULSE 84
[2019-12-05 07:55] LABS: ANION GAP 10.4 mmol/L (5-15)
[2019-12-05] MEDS: Potassium Chloride 20 MEQ Tab.ER PO SCH (08:11)
[2019-12-05] MEDS: Hydrochlorothiazide 25 MG Tab PO SCH (08:12)
[2019-12-05] MEDS: Aspirin 81 MG Tab.EC PO SCH (08:12)
[2019-12-05] MEDS: Pantoprazole 40 MG Tab.CR PO SCH (08:12)
[2019-12-05] MEDS: Allopurinol 100 MG Tab PO SCH (08:12)
[2019-12-05] MEDS: PRADAXA 150 MG PO SCH (08:15)
[2019-12-05] MEDS: Cyanocobalamin (Vitamin B12) 500 MCG Tab PO SCH (08:17)
[2019-12-05] MEDS: Furosemide 40 MG/4 ML VIAL IVPUSH SCH (08:21)
--- NOTE | 2019-12-05 09:16 | PN ---
PATIENT NAME: HAILEY DOTSON SUBJECTIVE: This is a 74-year-old male who was admitted by Dr. Monroe yesterday with refractory peripheral edema. The patient was admitted for IV furosemide. He did receive 80 mg IV b.i.d. He diuresed 12 pounds overnight. The patient states that he feels that this was quite an aggressive diuresis since he is feeling lightheaded. He is also some hypotensive this morning with a blood pressure of 93/69. The patient does have two wounds on the left freeman that appear clean. The lower one is 3 cm x 1.5 cm and the upper one is 1 cm x 1.1 cm. They are draining clear fluid. Preliminary culture and sensitivity are basically negative. The patient did not have labs today; however, I will order labs for tomorrow. OBJECTIVE: VITAL SIGNS: His temp is 96.3, pulse 62, respirations 16, blood pressure 93/69. His admission weight was 264 and he is 252 today. O2 saturation is 94% on room air. SKIN: Warm and dry to touch. CARDIAC: Reveals an irregularly irregular rhythm. No murmur, click, or gallop is auscultated. LUNGS: Clear. EXTREMITIES: He does have peripheral edema and has two open areas on the left freeman, one measuring 3 cm x 1.5 cm and the upper one is 1 cm x 1.1 cm. IMPRESSION: 1. Peripheral edema. 2. Atrial fibrillation. 3. Hypertension. 4. Vitamin B12 deficiency. PLAN: We will continue with IV diuresis; however, I did back off his p.m. dose of furosemide to 40 mg. He will continue to receive 80 mg IV in the a.m. CBC and CMP will be repeated tomorrow. We will continue to follow the wound cultures. He was started on Zosyn and vancomycin prophylactically on admission. Dr. Adela Monroe will round on this patient tomorrow. The plan is to possibly discharge him tomorrow or Thursday. /[id number]/MODL
--- NOTE | 2019-12-05 09:38 | PCM.DCSUM1 ---
Discharge Summary - Hospital Course Free Text/Narrative:: Admission Date: 12/02/2019 Discharge Date: 12/05/2019 Disposition: Home, Self-Care CODE STATUS: DNR/DNI Admission Diagnoses: Peripheral edema with blistering and weeping, failure of outpatient therapy, improved. Weight down total of 17 pounds over 3 days Resume furosemide 40 mg PO BID Start Metolazone 2.5 mg q M/W/ Referral has been placed through his outpatient chart for [facility] Early cellulitis, resolved. Bacillus not anthracis growing with normal skin macho. No antibiotics at discharge Diuretic induced prerenal azotemia Resume furosemide as noted above Follow-up in clinic on 12/08 with repeat BMP Hypokalemia Replace with 40 meQ KCl today New prescription for KCl 20 mEq PO daily until BMP is checked on 12/08 Secondary problems: Atrial fibrillation Continue Pradaxa Continue Diltiazem Gout Continue allopurinol HTN Continue HCTZ Acid Reflux Continue pantoprazole RLS Continue Ropinirole Hyperlipidemia Continue atorvastatin Vit B12 deficiency Continue cyanocobalamin 1,000 mcg PO daily in additional to outpatient monthly injections New Medications at Discharge: Metolazone 2.5 mg PO q M/W/F KCl 20 mEq PO daily (Both of these medications will be sent electronically to the pharmacy through his clinic chart) Hospital Summary: Tim was admitted on 12/01 after a clinic appointment for bilateral LE edema that was not responding to oral furosemide therapy at 40 mg PO BID. He had blistering as well as some mild erythema and on the LLE he had two open blisters that were draining serosanguinous fluid. Upon admission he was started on furosemide IV 80 mg BID and he diuresed 12 pounds in 24 hours. On 12/02 his furosemide was decreased to 80 IV q AM and 40 IV q afternoon that 24 hour period he diuresed another 2 pounds. Furosemide was further decreased on 12/03 to 40 mg IV BID and he had another 3 pounds weight loss for a total of 17 pounds weight loss. Legs are markedly improved from a swelling standpoint, actually as Tim said "they were wrinkly now and not so tight". He was also started on antibiotics for presumed early cellulitis on 12/01 with vancomycin and zosyn as he has a hx of MRSA. Currently cultures are growing bacillus not anthracis as well as normal skin macho. Vancomycin was discontinued on 12/03 as no indication of MRSA and he will discharge to home without any antibiotics. He does have Bactrim DS at home should he develop any signs of cellulitis. He did have diuretic induced hypokalemia and acute renal injury. He will be discharged on potassium supplementation and will repeat BMP on 12/08 when he follows up in clinic. Diagnosis: Stroke: No Modified [place] Scale: No Signif.Disability Despite Sympt.Able to Carry Out Usual Act./Duties Modified [place] Scale Score: 1 - Discharge Data Discharge Date: 12/05/19 Discharge Disposition: Home, Self-Care 01 Condition: Good - Referral to Home Health Primary Care Physician: Adela Temple MD - Patient Instructions Diet: Usual Diet as Tolerated Activity: As Tolerated Other/Special Instructions: Follow up in the clinic on 12/[address] Monroe. Notify Dr. Monroe's office if weight gain of more than 3 pounds in 24 hours or more than 5 pounds in a week. - Discharge Plan *PRESCRIPTION DRUG MONITORING PROGRAM REVIEWED*: Not Applicable *COPY OF PRESCRIPTION DRUG MONITORING REPORT IN PATIENT SMILEY: Not Applicable Home Medications: Home Meds Dabigatran [Pradaxa] 150 mg PO BID 11/01/13 [History] Rosuvastatin [Crestor] 40 mg PO BEDTIME 11/01/13 [History] Aspirin [Adult Low Dose Aspirin EC] 81 mg PO DAILY 10/13/15 [History] Pantoprazole Sodium 40 mg PO DAILY 10/13/15 [History] Acetaminophen [Tylenol] 650 mg PO Q6H PRN 04/23/18 [History] allopurinoL [Zyloprim] 100 mg PO DAILY 04/23/18 [History] hydrOXYzine HCL [hydrOXYzine] 50 mg PO BEDTIME PRN 04/23/18 [History] Furosemide 40 mg PO BID@0800,1200 12/23/18 [History] Sennosides/Docusate Sodium [Senna Plus 8.6-50 mg Tablet] 1 each PO DAILY PRN 0 06/28/19 [History] dilTIAZem HCL [Diltiazem 24Hr ER] 180 mg PO BEDTIME 06/28/19 [History] hydroCHLOROthiazide [Hydrochlorothiazide] 25 mg PO DAILY 06/28/19 [History] Cyanocobalamin (Vitamin B-12) [Vitamin B-12] 1,000 unit PO DAILY 08/04/19 [History] rOPINIRole [Requip] 1 mg PO BEDTIME 10/07/19 [History] - Discharge Summary/Plan Comment DC Time >30 min.: No - General Info Date of Service: 12/05/19 Admission Dx/Problem (Free Text: Peripheral edema with blistering and weeping, failed outpatient oral furosemide therapy. - Patient Data Vitals - Most Recent: Last Vital Signs Temp 96.9 F 12/05/19 06:57 Pulse 84 12/05/19 06:57 Resp 20 12/05/19 06:57 BP 95/74 12/05/19 06:57 Pulse Ox 99 12/05/19 09:17 Weight - Most Recent: 247 lb I&O - Last 24 hours: Intake & Output 12/04/19 12/05/19 12/05/19 22:59 06:59 14:59 Intake Total 1440 440 Output Total 2225 600 Balance -785 -160 Lab Results - Last 24 hrs: Laboratory Results - last 24 hr 12/04/19 12/05/19 12/05/19 Range/Units 12:42 07:08 07:08 WBC 6.23 (5.00-10.00) 10^3/uL RBC 5.50 (4.50-6.00) 10^6/uL Hgb 17.0 (13.0-17.0) g/dL Hct 49.3 (40.0-52.0) % MCV 89.6 (82.0-92.0) fL MCH 30.9 (27.0-31.0) pg MCHC 34.5 (32.0-36.0) g/dL RDW 12.4 (11.5-14.5) % Plt Count 236 (150-400) 10^3/uL MPV 9.0 (7.4-10.4) fL Immature Gran % (Auto) 0.2 (0.0-5.0) % Neut % (Auto) 61.0 (50.0-70.0) % Lymph % (Auto) 23.6 (20.0-40.0) % [place] % (Auto) 12.2 H (2.0-8.0) % Eos % (Auto) 2.4 (1.0-3.0) % Baso % (Auto) 0.6 (0.0-1.0) % Neut # (Auto) 3.80 (2.50-7.00) 10^3/uL Lymph # (Auto) 1.47 (1.00-4.00) 10^3/uL [place] # (Auto) 0.76 (0.10-0.80) 10^3/uL Eos # (Auto) 0.15 (0.10-0.30) 10^3/uL Baso # (Auto) 0.04 (0.00-0.10) 10^3/uL Immature Gran # (Auto) 0.01 (0.00-0.50) 10^3/uL Sodium 138 (136-145) mmol/L Potassium 3.1 L (3.3-5.3) mmol/L Chloride 95 L (98-115) mmol/L Carbon Dioxide 35.7 H (21.0-32.0) mmol/L Anion Gap 10.4 (5-15) mmol/L BUN 26 H (6-25) mg/dL Creatinine 1.39 H (0.51-1.17) mg/dL Est Cr Clr Drug Dosing 47.41 mL/min Estimated GFR (MDRD) 50 mL/min Glucose 133 H (75 - 99) mg/dL Calcium 8.9 (8.7-10.3) mg/dL Vancomycin Trough 22.4 H* (10-20) ug/mL TOBY Results - Last 24 hrs: Microbiology 12/02/19 10:16 Miscellaneous Reference Culture - Preliminary Wound - Leg, Right Gram Stain - Final 12/02/19 10:15 Miscellaneous Reference Culture - Preliminary Wound - Leg, Left Bacillus Species Not Anthracis Iso Consist W Cutaneous Macho Gram Stain - Final 12/02/19 12:45 Urine Culture - Final Urine, Clean Catch MIXED MACHO SUGGESTIVE OF CONTAMINATION. Med Orders - Current: Current Medications Acetaminophen (Tylenol) 650 mg PO Q6H PRN PRN Reason: PAIN Allopurinol (Zyloprim) 100 mg PO DAILY [facility] Last Admin: 12/05/19 08:12 Dose: 100 mg Documented by: Aspirin (Halfprin) 81 mg PO DAILY [facility] Last Admin: 12/05/19 08:12 Dose: 81 mg Documented by: Cyanocobalamin (Vitamin B12) 1,000 mcg PO DAILY [facility] Last Admin: 12/05/19 08:17 Dose: Not Given Documented by: Diltiazem HCl (Cardizem Cd) 180 mg PO BEDTIME [facility] Last Admin: 12/04/19 20:30 Dose: 180 mg Documented by: Furosemide (Lasix) 40 mg IVPUSH DAILY@1700 [facility] Last Admin: 12/04/19 16:54 Dose: 40 mg Documented by: Furosemide (Lasix) 40 mg IVPUSH DAILY [facility] Last Admin: 12/05/19 08:21 Dose: 40 mg Documented by: Hydrochlorothiazide (Hydrochlorothiazide) 25 mg PO DAILY [facility] Last Admin: 12/05/19 08:12 Dose: 25 mg Documented by: Hydroxyzine HCl (Atarax) 50 mg PO BEDTIME PRN PRN Reason: Other Sodium Chloride (Normal Saline) 250 mls @ 100 mls/hr IV DAILY@1015 [facility] Last Admin: 12/05/19 05:03 Dose: 100 mls/hr Documented by: Piperacillin/Tazobactam/ (Dextrose 3.375 gm/ Premix) 50 mls @ 100 mls/hr IV Q6H [facility] Last Admin: 12/05/19 05:03 Dose: 100 mls/hr Documented by: Ptom Pradaxa (150mg Capsule) 150 mg PO BID [facility] Last Admin: 12/05/19 08:15 Dose: 150 mg Documented by: Pantoprazole Sodium (Protonix) 40 mg PO DAILY [facility] Last Admin: 12/05/19 08:12 Dose: 40 mg Documented by: Potassium Chloride (Klor-Con M20) 40 meq PO DAILY [facility] Last Admin: 12/05/19 08:11 Dose: 40 meq Documented by: Ropinirole HCl (Requip) 1 mg PO BEDTIME [facility] Last Admin: 12/04/19 20:30 Dose: 1 mg Documented by: Rosuvastatin Calcium (Crestor) 40 mg PO BEDTIME [facility] Last Admin: 12/04/19 20:30 Dose: 40 mg Documented by: Sodium Chloride (Saline Flush) 10 ml FLUSH Q8HR PRN PRN Reason: keep vein open Last Admin: 12/04/19 05:13 Dose: 10 ml Documented by: Discontinued Medications Furosemide (Lasix) 80 mg IVPUSH BID [facility] Last Admin: 12/03/19 09:30 Dose: Not Given Documented by: Furosemide (Lasix) 40 mg IVPUSH DAILY [facility] Furosemide (Lasix) 80 mg IVPUSH DAILY [facility] Last Admin: 12/04/19 11:49 Dose: Not Given Documented by: Furosemide (Lasix) 40 mg IVPUSH DAILY [facility] Last Admin: 12/03/19 16:34 Dose: 40 mg Documented by: Piperacillin/Tazobactam/ (Dextrose 3.375 gm/ Premix) 50 mls @ 100 mls/hr IV Q6H [facility] Last Admin: 12/02/19 11:57 Dose: 100 mls/hr Documented by: Vancomycin HCl 1.5 gm/ Sodium (Chloride) 250 mls @ 100 mls/hr IV Q12H [facility] Last Admin: 12/04/19 13:33 Dose: Not Given Documented by: Metolazone (Zaroxolyn) 2.5 mg PO ONETIME ONE Stop: 12/02/19 10:08 Last Admin: 12/02/19 11:14 Dose: 2.5 mg Documented by: Vancomycin HCl (Pharmacy To Dose - Vancomycin) 1 dose .XX ASDIRECTED [facility] - Exam General: Reports: Alert, Oriented, Cooperative, No Acute Distress Lungs: Reports: Clear to Auscultation, Normal Respiratory Effort Cardiovascular: Reports: No Murmurs, Irregular Rhythm GI/Abdominal Exam: Normal Bowel Sounds Extremities: Pedal Edema (Marked improvement in pedal edema.) Skin: Reports: Other (Blistering improved. No drainage, scabs over the open blisters on LLE.)
== END 2019-12-05 10:57 | disposition home or self-care (01) | DRG 603 ==
LOC: KA.MS 09:30
PROVIDERS: ADMIT Internal Medicine; ATTEND Internal Medicine
DX: L03.116 Cellulitis of left lower limb (principal); N17.9 Acute kidney failure, unspecified; L03.115 Cellulitis of right lower limb; B96.89 Other specified bacterial agents as the cause of diseases classified elsewhere; Z66 Do not resuscitate; E87.6 Hypokalemia; I48.91 Unspecified atrial fibrillation; M10.9 Gout, unspecified; I10 Essential (primary) hypertension; Z20.828 Contact with and (suspected) exposure to other viral communicable diseases; R79.89 Other specified abnormal findings of blood chemistry; K21.9 Gastro-esophageal reflux disease without esophagitis; T50.2X5A Adverse effect of carbonic-anhydrase inhibitors, benzothiadiazides and other diuretics, initial encounter; G25.81 Restless legs syndrome; E78.5 Hyperlipidemia, unspecified; E53.8 Deficiency of other specified B group vitamins; Z79.82 Long term (current) use of aspirin; Z79.899 Other long term (current) drug therapy
CPT/HCPCS: 36415; 51798; 80048; 80053; 80202; 81001; 85025; 87070; 87086; 87205; A9270-GY; J1940; J2543; J3370; J7050; U0002

== ENCOUNTER 2020-03-14 23:08 | Emergency (ER) | payer MEDICARE, OTHER ==
--- NOTE | 2020-03-15 00:04 | EDM.PDOC ---
ED HPI GENERAL MEDICAL PROBLEM - General Chief Complaint: General Stated Complaint: L leg blisters Time Seen by Provider: 03/14/20 23:42 Source of Information: Reports: Patient History Limitations: Reports: No Limitations - History of Present Illness INITIAL COMMENTS - FREE TEXT/NARRATIVE: Patient presents with painful blisters on left leg after having surgery yesterday on his veins. His loosened the bandages enough to see there are blisters but didn't unwrap the bandages. He called the helpline at [place] and was instructed to come to ER. He says he took Naproxen and Holmen but it didn't help much. - Related Data Allergies Allergy/AdvReac Type Severity Reaction Status Date / Time No Known Allergies Allergy Verified 03/14/20 23:39 Home Meds: Home Meds Dabigatran [Pradaxa] 150 mg PO BID 11/01/13 [History] Rosuvastatin [Crestor] 40 mg PO BEDTIME 11/01/13 [History] Aspirin [Adult Low Dose Aspirin EC] 81 mg PO DAILY 10/13/15 [History] Pantoprazole Sodium 40 mg PO DAILY 10/13/15 [History] Acetaminophen [Tylenol] 650 mg PO Q6H PRN 04/23/18 [History] allopurinoL [Zyloprim] 100 mg PO DAILY 04/23/18 [History] hydrOXYzine HCL [hydrOXYzine] 50 mg PO BEDTIME PRN 04/23/18 [History] Furosemide 40 mg PO BID@0800,1200 12/23/18 [History] Sennosides/Docusate Sodium [Senna Plus 8.6-50 mg Tablet] 1 each PO DAILY PRN 06/28/19 [History] dilTIAZem HCL [Diltiazem 24Hr ER] 180 mg PO BEDTIME 06/28/19 [History] hydroCHLOROthiazide [Hydrochlorothiazide] 25 mg PO DAILY 06/28/19 [History] Cyanocobalamin (Vitamin B-12) [Vitamin B-12] 1,000 unit PO DAILY 08/04/19 [History] rOPINIRole [Requip] 1 mg PO BEDTIME 10/07/19 [History] Past Medical History HEENT History: Reports: Impaired Vision Cardiovascular History: Reports: Afib, High Cholesterol, Hypertension Respiratory History: Reports: Asthma, COPD, Sleep Apnea Gastrointestinal History: Reports: Colon Polyp, GERD, Hemorrhoids Genitourinary History: Reports: Prostate Disorder, Renal Calculus Musculoskeletal History: Reports: Arthritis, Back Pain, Chronic Neurological History: Reports: Headaches, Chronic Psychiatric History: Reports: Depression, PTSD Endocrine/Metabolic History: Reports: Obesity/BMI 30+ Hematologic History: Reports: None Immunologic History: Reports: Immunosuppression Oncologic (Cancer) History: Reports: Prostate Dermatologic History: Reports: Cellulitis - Infectious Disease History Infectious Disease History: Reports: None Other Infectious Disease History: 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 -has chest x-ray at times for he did test positive - Past Surgical History HEENT Surgical History: Reports: Eye Surgery, Other (See Below) Other HEENT Surgeries/Procedures: eyelids Cardiovascular Surgical History: Reports: None Respiratory Surgical History: Reports: None GI Surgical History: Reports: Cholecystectomy, Colonoscopy, Hernia, Inguinal, Polypectomy Male Surgical History: Reports: Prostate Biopsy, Other (See Below) Other Male Surgeries/Procedures: prostate cancer with radiation Endocrine Surgical History: Reports: None Neurological Surgical History: Reports: None Musculoskeletal Surgical History: Reports: Shoulder Surgery Oncologic Surgical History: Reports: None Dermatological Surgical History: Reports: None Social & Family History - Family History Family Medical History: Noncontributory - Caffeine Use Caffeine Use: Reports: Coffee Other Caffeine Use: boost ED ROS GENERAL - Review of Systems Review Of Systems: See Below Constitutional: Denies: Fever, Malaise HEENT: Denies: Ear Pain, Throat Pain, Vision Change Respiratory: Denies: Shortness of Breath Cardiovascular: Denies: Chest Pain GI/Abdominal: Denies: Abdominal Pain Skin: Reports: No Symptoms Neurological: Reports: No Symptoms ED EXAM, GENERAL - Physical Exam Exam: See Below Exam Limited By: No Limitations General Appearance: Alert, WD/WN, No Apparent Distress Eye Exam: Bilateral Eye: EOMI, Normal Inspection, PERRL Ears: Normal External Exam, Hearing Grossly Normal Nose: Normal Inspection, No Blood Throat/Mouth: Normal Inspection Head: Atraumatic, Normocephalic Neck: Normal Inspection Respiratory/Chest: No Respiratory Distress Extremities: Other (I removed the RIAN wrap and layers of bandages. There is a large intact blister just superior to the medial left knee. No evidence of cellulitis or abscess. Pain is completely relieved by the bandage removal so I placed folded gauze pads to create a buffer surrounding the blister and re- wrapped the leg with just modest tension on the RIAN. Patient says this feels fine now.) Neurological: Alert, Oriented, Normal Cognition Psychiatric: Normal Affect, Normal Mood Skin Exam: Warm, Dry, Intact, Normal Color, No Rash Course - Re-Assessments/Exams Free Text/Narrative Re-Assessment/Exam: 03/15/20 00:10 Discussed findings and plan with patient. He will be going to [place] tomorrow morning for recheck of this and will leave the bandages on until then. Discharged to home in stable condition. Departure - Departure Time of Disposition: 23:58 Disposition: Home, Self-Care 01 Condition: Good Clinical Impression: Traumatic blister of left lower extremity Qualifiers: Encounter type: initial encounter Qualified Code(s): S80.822A - Blister (nonthermal), left lower leg, initial encounter - Discharge Information Referrals: Adela Temple MD [Primary Care Provider] - Additional Instructions: Leave bandages in place until you see your surgeon again tomorrow morning.
[2020-03-15 02:46] VITALS: BP 134/103; PULSE 83
== END 2020-03-15 00:24 | disposition home or self-care (01) ==
LOC: KA.ED 23:08
DX: S80.822A Blister (nonthermal), left lower leg, initial encounter (principal); I48.91 Unspecified atrial fibrillation; E78.00 Pure hypercholesterolemia, unspecified; I10 Essential (primary) hypertension; J44.9 Chronic obstructive pulmonary disease, unspecified; K21.9 Gastro-esophageal reflux disease without esophagitis; M19.90 Unspecified osteoarthritis, unspecified site; E66.9 Obesity, unspecified; Z79.82 Long term (current) use of aspirin; Z79.899 Other long term (current) drug therapy; X58.XXXA Exposure to other specified factors, initial encounter
CPT/HCPCS: 99283; 99284

== ENCOUNTER 2020-10-23 07:55 | Day surgery (SDC) | payer MEDICARE, OTHER ==
[2020-10-23] MEDS ORDERED: Lidocaine 2% 5 ML SDV ONE ×2 (07:56→09:11)
[2020-10-23] MEDS ORDERED: Sodium Chloride 0.9% 10 ML Syringe FLUSH PRN (08:00)
[2020-10-23] MEDS ORDERED: Lactated Ringers 1,000 ML IV SCH (08:00)
[2020-10-23] MEDS ORDERED: Midazolam 1 MG/ML 2 ML SDV ONE (09:10)
[2020-10-23] MEDS ORDERED: Propofol 200 MG/20 ML SDV ONE (09:10)
--- NOTE | 2020-10-23 09:40 | PCM.PN ---
- General Info Date of Service: 10/23/20 - Review of Systems Systems Review Comment:: 74-year-old male with history of dysphagia and known prior history of esophageal stricture here for EGD and possible balloon esophageal dilation. Patient is medically stable to proceed. His recent history and physical is reviewed and no significant changes are noted. I have again discussed the proposed EGD with dilation with the patient. His questions were answered. He agrees to proceed accepting risks. - Patient Data Vitals - Most Recent: Last Vital Signs Temp 96.7 F L 10/23/20 08:14 Pulse 80 10/23/20 08:14 Resp 17 10/23/20 08:14 BP 139/97 H 10/23/20 08:14 Pulse Ox 98 10/23/20 08:14 Weight - Most Recent: 120.202 kg Med Orders - Current: Current Medications Lactated Ringer's (Ringers, Lactated) 1,000 mls @ 50 mls/hr IV ASDIRECTED KENNETH Last Admin: 10/23/20 08:24 Dose: 50 mls/hr Documented by: Sodium Chloride (Sodium Chloride 0.9% 10 Ml Syringe) 10 ml FLUSH Q8HR PRN PRN Reason: keep vein open Discontinued Medications Lidocaine (Lidocaine 2% 5 Ml Sdv) Confirm Administered Dose 5 ml .ROUTE .STK-MED ONE Stop: 10/23/20 09:12 Midazolam HCl (Midazolam 1 Mg/Ml 2 Ml Sdv) Confirm Administered Dose 2 mg .ROUTE .STK-MED ONE Stop: 10/23/20 09:11 Propofol (Propofol 200 Mg/20 Ml Sdv) Confirm Administered Dose 400 mg .ROUTE .STK-MED ONE Stop: 10/23/20 09:11 Sepsis Event Note - Focused Exam Vital Signs: Vital Signs Temp Pulse Resp BP Pulse Ox 10/23/20 08:14 96.7 F L 80 17 139/97 H 98 - Problem List Review Problem List Initiated/Reviewed/Updated: Yes - My Orders Last 24 Hours: My Active Orders 10/22/20 15:48 Resuscitation Status Routine 10/23/20 08:00 Peripheral IV Care [RC] . DIRECTED Nothing Per Oral Diet [DIET] Lactated Ringers [Ringers, Lactated] 1,000 ml IV ASDIRECTED Sodium Chloride 0.9% [Saline Flush] 10 ml FLUSH Q8HR PRN Peripheral IV Insertion Adult [OM.PC] Routine 10/23/20 08:30 Patient to Empty Bladder [RC] ASDIRECTED 10/23/20 09:00 Verify Patient Consent Obtain [RC] ASDIRECTED - Assessment Assessment:: Dysphagia - Plan Plan:: EGD with dilation
--- NOTE | 2020-10-23 10:24 | PCM.OPNOTE ---
- General Post-Op/Procedure Note Date of Surgery/Procedure: 10/23/20 Operative Procedure(s): EGD with Balloon Esophageal Dilation Findings: Single moderate stricture at GE Jct Moderate sized Hiatal Hernia Mild Gastritis in Antrum Pre Op Diagnosis: Dysphagia Post-Op Diagnosis: Esophageal Stricture. Hiatal Hernia. Antritis Anesthesia Technique: MAC Primary Surgeon: Hal Mcneil Pathology: none EBL in mLs: 3 Complications: None Condition: Good
[2020-10-23 11:18] VITALS: BP 146/104; PULSE 90
--- NOTE | 2020-10-23 14:51 | OR ---
DATE OF SURGERY: 10/23/2020 SURGEON: Hal Mcneil MD PREOPERATIVE DIAGNOSIS: Dysphagia. POSTOPERATIVE DIAGNOSIS: Esophageal stricture, hiatal hernia, gastritis. OPERATION PERFORMED: Esophagogastroduodenoscopy with balloon esophageal dilation. INDICATIONS FOR SURGERY: This 74-year-old male has again developed symptoms of dysphagia. He does have a history of esophageal stricture noted in the past, which responded well to balloon dilation. FINDINGS: At the patient's GE junction, the patient has a moderate stricture which is localized to that area. It is a benign-appearing stricture. There does not appear to be any extrinsic or intrinsic mass associated with this. The remainder of the esophagus appears normal. There is, however, a moderate-sized hiatal hernia. The patient does have some mild degree of inflammation in the antrum near the pylorus, although no ulcers are seen. The exam is otherwise normal. DESCRIPTION OF PROCEDURE: The patient was taken to the operating room. He was given intravenous sedation, and with him in the left lateral decubitus position, the Olympus gastroscope was advanced through a mouth guard into the oral cavity. Under direct visualization, the scope was advanced through the hypopharynx into the esophagus and then down through the esophagus and through the area of the stricture into the stomach and on into the duodenum where examination to the 3rd portion was performed. After carefully examining the duodenum, the scope was withdrawn back into the stomach where full examination including retroflexed examination of the fundus is performed. 15-16.5-18 dilating balloon is then selected, it is inserted through the scope, and using successive dilation, the esophageal stricture at the GE junction is dilated up to 18 mm. There was a moderate amount of heme noted with the dilation and the stricture did appear to be improved with this procedure. No evidence of complication was noted. The balloon is removed, and after followup examination, the scope was removed and the patient was taken from the operating room in satisfactory condition. ESTIMATED BLOOD LOSS: 2 mL. COMPLICATIONS: None. PROGNOSIS: Good. /[id number]/MODL
== END 2020-10-23 11:34 | disposition home or self-care (01) ==
LOC: KA.SDS 07:55
PROVIDERS: ATTEND Surgery
DX: K22.2 Esophageal obstruction (principal); K44.9 Diaphragmatic hernia without obstruction or gangrene; K29.70 Gastritis, unspecified, without bleeding; I48.91 Unspecified atrial fibrillation; J45.909 Unspecified asthma, uncomplicated; E78.00 Pure hypercholesterolemia, unspecified; E55.9 Vitamin D deficiency, unspecified; M10.9 Gout, unspecified; E87.6 Hypokalemia; I10 Essential (primary) hypertension; Z79.01 Long term (current) use of anticoagulants; Z79.82 Long term (current) use of aspirin; Z79.899 Other long term (current) drug therapy; Z90.49 Acquired absence of other specified parts of digestive tract; Z98.890 Other specified postprocedural states; Z87.891 Personal history of nicotine dependence
CPT/HCPCS: 00731; J2250; J2704; J7120

== ENCOUNTER 2023-06-17 20:57 | Inpatient (IN) | payer MEDICARE, OTHER ==
[2023-06-17] MEDS: Sodium Chloride 0.9% 10 ML Syringe FLUSH PRN (21:19)
[2023-06-17] MEDS ORDERED: Sodium Chloride 0.9% 10 ML Syringe FLUSH PRN (21:22)
[2023-06-17 21:33] LABS: BASOPHILS ABSOLUTE AUTO 0.03 10^3/uL (0.00-0.10); BASOPHILS PERCENT AUTO 0.6 % (0.0-1.0); EOSINOPHILS ABSOLUTE AUTO 0.04 10^3/uL (0.10-0.30); EOSINOPHILS PERCENT AUTO 0.8 % (1.0-3.0); HEMATOCRIT 41.8 % (40.0-52.0); HEMOGLOBIN 14.7 g/dL (13.0-17.0); IMMATURE GRAN ABSOLUTE AUTO 0.01 10^3/uL (0.00-0.50); IMMATURE GRAN PERCENT AUTO 0.2 % (0.0-5.0); LYMPHOCYTES ABSOLUTE AUTO 0.62 10^3/uL (1.00-4.00); LYMPHOCYTES PERCENT AUTO 12.3 % (20.0-40.0); MEAN CORPUSCULAR HEMOGLOBIN 33.9 pg (27.0-31.0); MEAN CORPUSCULAR HGB CONC 35.2 g/dL (32.0-36.0); MEAN CORPUSCULAR VOLUME 96.3 fL (82.0-92.0); MEAN PLATELET VOLUME 9.7 fL (7.4-10.4); MONOCYTES ABSOLUTE AUTO 0.69 10^3/uL (0.10-0.80); MONOCYTES PERCENT AUTO 13.7 % (2.0-8.0); NEUTROPHILS ABSOLUTE AUTO 3.64 10^3/uL (2.50-7.00); NEUTROPHILS PERCENT AUTO 72.4 % (50.0-70.0); PLATELET COUNT,PLT 179 10^3/uL (150-400); RED BLOOD CELL COUNT 4.34 10^6/uL (4.50-6.00); RED CELL DISTRIBUTION WIDTH 12.9 % (11.5-14.5); WHITE BLOOD CELL COUNT,WBC 5.03 10^3/uL (5.00-10.00)
[2023-06-17] MEDS ORDERED: Diltiazem 25 MG/5 ML SDV IVPUSH ONE (21:51)
[2023-06-17 21:53] LABS: ALANINE AMINOTRANSFERASE,ALT 21 U/L (14-63); ALBUMIN 3.51 g/dL (3.40-5.00); ALKALINE PHOSPHATASE 73 U/L (46-116); ASPARTATE AMNIOTRANSFERASE,AST 22 U/L (15-37); BILIRUBIN TOTAL 1.3 mg/dL (0.2-1.0); BLOOD UREA NITROGEN,BUN 14 mg/dL (7-18); C-REACTIVE PROTEIN 0.54 mg/dL (0.00-0.50); CALCIUM 8.8 mg/dL (8.7-10.3); CARBON DIOXIDE,CO2 30.4 mmol/L (21.0-32.0); CHLORIDE,CL 97 mmol/L (98-107); CREATININE 1.03 mg/dL (0.51-1.17); ESTIMATED GFR 74 mL/min (>=60); GLUCOSE RANDOM 100 mg/dL (70-140); POTASSIUM,K 4.4 mmol/L (3.5-5.1); PROTEIN TOTAL,TP 6.6 g/dL (6.4-8.2); SODIUM,NA 136 mmol/L (136-145)
[2023-06-17 21:55] LABS: B-TYPE NATRIURETIC PEPTIDE,BNP 20 pg/mL (0-100)
[2023-06-17 21:56] LABS: LACTIC ACID 1.5 mmol/L (0.4-2.0)
[2023-06-17] MEDS ORDERED: Sodium Chloride 0.9% 1,000 ML IV SCH (22:00)
[2023-06-17 22:19] LABS: INFLUENZA A NAA POSITIVE (NEGATIVE); INFLUENZA B NAA NEGATIVE (NEGATIVE); RESPIRATORY SYNCYTIAL VIR NAA NEGATIVE (NEGATIVE)
[2023-06-17 22:21] LABS: CORONAVIRUS COVID-19 NAA NEGATIVE (NEGATIVE)
[2023-06-17] MEDS ORDERED: Albuterol/Ipratropium 3.0-0.5 MG/3 ML Neb Soln ONE (22:48)
[2023-06-17] MEDS: Albuterol/Ipratropium 3.0-0.5 MG/3 ML Neb Soln NEB SCH (22:50)
[2023-06-18] MEDS ORDERED: Ondansetron 4 MG Tab.DIS PO PRN (00:13)
[2023-06-18] MEDS ORDERED: Acetaminophen 325 MG Tab PO PRN (00:13)
[2023-06-18] MEDS ORDERED: Ipratropium 0.02% 0.5 MG/2.5 ML Neb Soln NEB PRN (00:24)
[2023-06-18] MEDS: Oseltamivir 75 MG Cap PO SCH ×3 (00:34→21:16)
[2023-06-18] MEDS: predniSONE 20 MG Tab PO SCH ×3 (00:34→15:27)
[2023-06-18] MEDS ORDERED: Diltiazem 25 MG/5 ML SDV IVPUSH ONE (03:36)
[2023-06-18] MEDS: Sodium Chloride 0.9% 10 ML Syringe FLUSH PRN (03:50)
[2023-06-18] MEDS: Albuterol/Ipratropium 3.0-0.5 MG/3 ML Neb Soln NEB SCH ×3 (05:25→21:16)
[2023-06-18] MEDS ORDERED: Diltiazem 25 MG/5 ML SDV IVPUSH PRN (06:05)
[2023-06-18] MEDS ORDERED: Diltiazem 180 MG Cap.CD PO SCH ×2 (06:15→09:00)
[2023-06-18 07:18] LABS: BASOPHILS ABSOLUTE AUTO 0.01 10^3/uL (0.00-0.10); BASOPHILS PERCENT AUTO 0.3 % (0.0-1.0); HEMOGLOBIN 13.3 g/dL (13.0-17.0); IMMATURE GRAN ABSOLUTE AUTO 0.02 10^3/uL (0.00-0.50); IMMATURE GRAN PERCENT AUTO 0.5 % (0.0-5.0); LYMPHOCYTES PERCENT AUTO 8.1 % (20.0-40.0); MEAN CORPUSCULAR HEMOGLOBIN 32.7 pg (27.0-31.0); MEAN CORPUSCULAR HGB CONC 34.1 g/dL (32.0-36.0); MEAN CORPUSCULAR VOLUME 95.8 fL (82.0-92.0); MEAN PLATELET VOLUME 9.4 fL (7.4-10.4); MONOCYTES ABSOLUTE AUTO 0.36 10^3/uL (0.10-0.80); MONOCYTES PERCENT AUTO 9.8 % (2.0-8.0); NEUTROPHILS PERCENT AUTO 81.3 % (50.0-70.0); PLATELET COUNT,PLT 169 10^3/uL (150-400); RED BLOOD CELL COUNT 4.07 10^6/uL (4.50-6.00); RED CELL DISTRIBUTION WIDTH 12.9 % (11.5-14.5); WHITE BLOOD CELL COUNT,WBC 3.69 10^3/uL (5.00-10.00)
[2023-06-18 07:47] LABS: ANION GAP 13.1 mmol/L (5-15); CALCIUM 8.6 mg/dL (8.7-10.3); CARBON DIOXIDE,CO2 27.1 mmol/L (21.0-32.0); CREATININE 1.01 mg/dL (0.51-1.17); EST CRCL DRUG DOSING (CG) 62.24 mL/min; MAGNESIUM 1.7 mg/dL (1.8-2.4); POTASSIUM,K 4.2 mmol/L (3.5-5.1)
[2023-06-18] MEDS: Enoxaparin 40 MG/0.4 ML Syringe SUBCUT SCH (08:26)
[2023-06-18 10:42] LABS: HEMOGLOBIN A1C 6.1 % (4.3-5.7)
[2023-06-18 10:51] LABS: TSH ULTRASENSITIVE 0.224 uIU/mL (0.340-4.820)
[2023-06-18] MEDS: Magnesium Oxide 500 MG Tab PO SCH (10:57)
[2023-06-18] MEDS ORDERED: Sodium Chloride 0.9% 1,000 ML IV SCH (12:45)
[2023-06-18] MEDS: Cefepime 1 GM in Sodium Chloride 0.9% 50 ML IV SCH (13:06)
[2023-06-18 13:28] LABS: APPEARANCE,URINE CLEAR (CLEAR); BILIRUBIN,URINE NEGATIVE (NEGATIVE); COLOR,URINE YELLOW (YELLOW); GLUCOSE,URINE NEGATIVE (NEGATIVE); KETONES,URINE NEGATIVE (NEGATIVE); LEUKOCYTE ESTERASE,URINE NEGATIVE (NEGATIVE); NITRITE,URINE NEGATIVE (NEGATIVE); OCCULT BLOOD,URINE MODERATE (NEGATIVE); PH,URINE 5.5 (5.0-9.0); PROTEIN,URINE TRACE mg/dL (NEGATIVE)
[2023-06-18 13:36] LABS: BACTERIA,URINE FEW /HPF (NONE TO FEW); EPITHELIAL CELLS,URINE FEW /LPF; MUCUS,URINE MODERATE /LPF (NEGATIVE); WBC,URINE 0-5 /HPF (0-5)
[2023-06-18] MEDS ORDERED: Diltiazem 60 MG Cap.SR PO ONE (17:32)
[2023-06-18] MEDS ORDERED: Diltiazem IR 60 MG Tab PO ONE (17:43)
[2023-06-18] MEDS ORDERED: Rosuvastatin 10 MG Tab PO SCH (21:00)
[2023-06-18] MEDS ORDERED: Sodium Chloride 0.9% 50 ML IV SCH (22:00)
[2023-06-19] MEDS: Sodium Chloride 0.9% 10 ML Syringe FLUSH PRN (00:36)
[2023-06-19] MEDS: Cefepime 1 GM in Sodium Chloride 0.9% 50 ML IV SCH (00:36)
[2023-06-19] MEDS: Albuterol/Ipratropium 3.0-0.5 MG/3 ML Neb Soln NEB SCH (05:52)
[2023-06-19] MEDS: predniSONE 20 MG Tab PO SCH (07:59)
[2023-06-19] MEDS: Magnesium Oxide 500 MG Tab PO SCH (07:59)
[2023-06-19] MEDS: Enoxaparin 40 MG/0.4 ML Syringe SUBCUT SCH (07:59)
[2023-06-19] MEDS: Oseltamivir 75 MG Cap PO SCH (07:59)
[2023-06-19 08:03] VITALS: BP 146/83; PULSE 94
[2023-06-19] MEDS ORDERED: Diltiazem 120 MG Cap.CD PO SCH (09:00)
== END 2023-06-19 10:00 | disposition home or self-care (01) | DRG 308 ==
LOC: KA.ED 20:57 → KA.MS 22:56 → UNDOADMIN 23:10
PROVIDERS: ADMIT Nurse Practitioner; ATTEND Hospitalist
DX: I48.11 Longstanding persistent atrial fibrillation (principal); I48.91 Unspecified atrial fibrillation; J44.9 Chronic obstructive pulmonary disease, unspecified; J10.00 Influenza due to other identified influenza virus with unspecified type of pneumonia; R60.9 Edema, unspecified; J44.1 Chronic obstructive pulmonary disease with (acute) exacerbation; I10 Essential (primary) hypertension; E78.00 Pure hypercholesterolemia, unspecified; G47.30 Sleep apnea, unspecified; K21.9 Gastro-esophageal reflux disease without esophagitis; E66.9 Obesity, unspecified; Z79.2 Long term (current) use of antibiotics; Z68.41 Body mass index [BMI] 40.0-44.9, adult; M19.90 Unspecified osteoarthritis, unspecified site; M54.9 Dorsalgia, unspecified; G89.29 Other chronic pain; F32.A Depression, unspecified; R79.82 Elevated C-reactive protein (CRP); I87.8 Other specified disorders of veins; Z11.52 Encounter for screening for COVID-19; Z51.5 Encounter for palliative care; Z79.51 Long term (current) use of inhaled steroids; Z79.899 Other long term (current) drug therapy; Z79.82 Long term (current) use of aspirin; Z79.01 Long term (current) use of anticoagulants; Z86.010 Personal history of colon polyps; Z68.39 Body mass index [BMI] 39.0-39.9, adult; Z98.890 Other specified postprocedural states; Z90.49 Acquired absence of other specified parts of digestive tract
CPT/HCPCS: 0241U; 36415; 71045; 80048; 80053; 80061; 81001; 83036; 83605; 83735; 83880; 84145; 84443; 84484; 85025; 85379; 86140; 87040; 94640; 96361; 96374; 99285-25; A9270-GY; J0692; J1650; J3490; J7030; J7512; J7620-GY; Q3014

== ENCOUNTER 2024-01-23 16:03 | Emergency (ER) | payer MEDICARE, OTHER ==
[2024-01-23 16:40] VITALS: BP 129/96; PULSE 80
[2024-01-23] MEDS: Bacitracin/Neomycin/Polymyxin B Oint 0.9 GM U/D Packet TOP ONE (17:10)
== END 2024-01-23 17:22 | disposition home or self-care (01) ==
LOC: KA.ED 16:03
DX: S61.412A Laceration without foreign body of left hand, initial encounter (principal); I10 Essential (primary) hypertension; J45.909 Unspecified asthma, uncomplicated; K21.9 Gastro-esophageal reflux disease without esophagitis; E66.9 Obesity, unspecified; Z90.49 Acquired absence of other specified parts of digestive tract; Z79.899 Other long term (current) drug therapy; M19.90 Unspecified osteoarthritis, unspecified site; Z79.82 Long term (current) use of aspirin; Z68.36 Body mass index [BMI] 36.0-36.9, adult; W27.8XXA Contact with other nonpowered hand tool, initial encounter
CPT/HCPCS: 99283